=== PATIENT | male | born 1985 | race Caucasian/White ===

== ENCOUNTER 2021-05-04 17:36 | Inpatient (IN) ==
[2021-05-04] MEDS ORDERED: IOPAMIDOL 100 ML BOTTLE IV ONE (17:37)
[2021-05-04] MEDS ORDERED: 0.9 % SODIUM CHLORIDE 1,000 ML IV ONE (17:53)
[2021-05-04] MEDS ORDERED: PIPERACILLIN SODIUM/TAZOBACTAM 3.375 GM in DEXTROSE 5% IN WATER 50 ML IV ONE (17:54)
[2021-05-04 18:45] LABS: POC Creatinine 1.4 mg/dL (0.6-1.2)
[2021-05-04] MEDS ORDERED: HYDROmorphone 1 MG/ML SYRINGE IV ONE (18:52)
[2021-05-04] MEDS ORDERED: HYDROmorphone 0.5 MG/0.5 ML SYRINGE ONE (19:23)
[2021-05-04 19:25] LABS: ALT/SGPT 12 U/L (<40); AST/SGOT 9 U/L (<40); Albumin 3.2 gm/dL (3.2-5.2); Albumin/Globulin Ratio 0.7 (1.0-2.3); Alkaline Phosphatase 118 U/L (39-117); Bilirubin,Total 0.8 mg/dL (0.1-1.0); Blood Urea Nitrogen 13 mg/dL (6-20); Calcium 8.7 mg/dL (8.6-10.4); Carbon Dioxide 22 mmol/L (22-30); Chloride 88 mmol/L (96-108); Globulin 4.3 gm/dL (2.2-3.7); Glomerular Filtration Rate 71; Glucose 497 mg/dL (70-105)
[2021-05-04 19:26] LABS: Basophils # (Auto) 0.14 K/mcL (0.00-0.30); Basophils % (Auto) 0.5 % (0.0-2.0); Eosinophils # (Auto) 0.04 K/mcL (0.00-0.70); Eosinophils % (Auto) 0.1 % (0.0-7.0); Hematocrit 34.6 % (40.1-51.0); Hemoglobin 11.7 g/dL (13.7-17.5); Lymphocytes # (Auto) 1.36 K/mcL (1.50-4.80); Lymphocytes % (Auto) 4.8 % (15.5-49.0); Mean Cell Volume 80.5 fL (80.0-100.0); Mean Corpuscular HGB Conc 33.8 g/dL (31.0-36.0); Mean Platelet Volume 9.8 fL (7.4-10.4); Monocytes # (Auto) 2.58 K/mcL (0.10-0.90); Monocytes % (Auto) 9.1 % (1.0-12.0); Neutrophils % (Auto) 85.5 % (38.0-78.0); Platelet Count 341 K/mcL (140-440); Red Cell Distribution Width 12.5 % (11.5-14.5); WBC 28.3 K/mcL (4.5-11.0)
[2021-05-04] MEDS ORDERED: INSULIN REGULAR, HUMAN 1 UNIT/0.01 ML UNIT IV ONE (19:33)
--- NOTE | 2021-05-04 19:35 | Emergency Department Note ---
HPI <Tamar Erickson PA-C - Last Filed: 05/04/21 20:17> General Chief complaint: Back Pain/Injury Stated complaint: Low Back Pain Time Seen by Provider: 05/04/21 17:41 Source: patient Mode of arrival: ambulatory Limitations: no limitations History of Present Illness HPI Narrative: 35-year-old obese diabetic male presents with 6 to 7 days of "back pain." The pain radiates from the top of his gluteal cleft on the left side through the left side of the perineum and down to the front of his left leg. He has difficulty sitting on the toilet due to pain from pressure. Otherwise it is not particularly painful with ambulation or laying flat. He did have some chills about 3 nights ago, but no fevers. He was seen at the [facility] clinic on Friday and examined, and they thought his symptoms were primarily due to lumbar back strain and possible radiculopathy. 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 There is no crepitus and no drainage from the area, but the areas are quite inflamed, indurated, warm to the touch and painful to palpation. He denies difficulty having a bowel movement or pain with stooling. He had a normal bowel movement at approximately noon today. No melena or hematochezia. Other past medical history significant for gastritis and hypertension for which he is on 4 antihypertensive agents. Related Data Home Medications Medication Instructions Recorded Confirmed Trulicity 1 SUBMUCOSAL INJ WEEKLY 05/04/21 losartan 50 mg tablet 50 mg PO QDAY 05/04/21 05/04/21 Allergies Allergy/AdvReac Type Severity Reaction Status Date / Time No Known Drug Allergies Allergy Verified 01/10/17 00:57 Review of Systems <Tamar Erickson PA-C - Last Filed: 05/04/21 20:17> ROS ROS Narrative: Narrative: All systems ED: reviewed and negative except as stated. PFSH <Tamar Erickson PA-C - Last Filed: 05/04/21 20:17> Narrative Patient History Narrative: Narrative: Medical/Surgical/Family History All Active Problems (Updated 05/04/21 @ 20:55 by Nawaf John MD) Stage 1 acute kidney injury (Acute) Perianal abscess (Acute) Sepsis (Acute) Morbid obesity (Acute) Diabetes mellitus type 2, uncontrolled (Acute) Hyperglycemia (Acute) Gastritis (Acute) Abscess, perirectal (Acute) Social History Smoking Status: Current every day smoker Exam <GILMER Bello Last Filed: 05/04/21 20:17> Narrative Narrative: General: AOx3, NAD, nontoxic appearing. Pleasant and conversant. HEENT: PERRL, EOMI, normocephalic. Moist mucous membranes. Normal facies Chest: Symmetric Respiratory: Lungs clear to auscultation bilaterally. No respiratory distress. Unlabored breathing. Heart: Regular rate and rhythm, no murmurs/clicks/rubs. Abdomen: Obese, non-tender, Non distended Extremities: Warm and well perfused. No edema. DP 2+ bilaterally. No venous stasis. Neuro: No focal deficits. Cranial nerves II-XII grossly normal. Skin: Warm dry, no rashes or lesions, no cyanosis. Psych: Normal mood and affect Heme/Lymph: No abnormal bruising General Limitations: no limitations Course <GILMER Bello Last Filed: 05/04/21 20:17> Course Course Narrative: 35-year-old poorly controlled diabetic male presents with perirectal abscess Reevaluation(s) Reevaluation #1: Obtain CBC, CMP, lactic acid, blood cultures Start IV give IV fluids and IV Zosyn Obtain CT of the pelvis with contrast to evaluate his abscess Give IV pain medications as needed Reevaluation #2: Blood glucose is 497, check a VBG and give 10 units IV insulin x1 dose now Consultations Consultation #1: Okay with Dr. Rojas, who will see the patient for consultation. Given the patient's poorly controlled diabetes, and multiple antihypertensive medications he has asked the hospitalist service to get involved with this patient's care. Awaiting hospice consult for admission. Vital Signs Vital signs: Vital Signs Temperature 97.5 F 05/04/21 17:38 Temperature 97.4 F 05/04/21 23:05 Pulse Rate 87 05/04/21 23:05 Respiratory Rate 20 05/04/21 23:05 Blood Pressure 99/58 05/04/21 23:05 Pulse Oximetry (%) 96 05/04/21 23:05 [facility] <Tamar Erickson PA-C - Last Filed: 05/04/21 20:17> MDM Narrative Medical decision making narrative: Perirectal abscess Poorly controlled type [address] Rojas has agreed to see the patient in consultation and will tentatively plan for the OR tomorrow. Currently his white blood cell count is elevated at 28,300 with significant left shift. He has been given IV Zosyn and blood cultures are pending. Lactic acid and VBG are also pending. The hospitalist service has been requested for management of his hypertension and hyperglycemia. I spoke with Dr. John who has excepted the patient for admission. Lab Data Result diagrams: 05/04/21 18:04 05/04/21 18:04 Labs: Lab Results 05/04/21 05/04/21 05/04/21 Range/Units 18:04 18:04 18:38 WBC 28.3 H (4.5-11.0) K/mcL RBC 4.30 L (4.63-6.08) M/mcL Hgb 11.7 L (13.7-17.5) g/dL Hct 34.6 L (40.1-51.0) % MCV 80.5 (80.0-100.0) fL MCH 27.2 (26.0-34.0) pg MCHC 33.8 (31.0-36.0) g/dL RDW 12.5 (11.5-14.5) % Plt Count 341 (140-440) K/mcL MPV 9.8 (7.4-10.4) fL Neut % (Auto) 85.5 H (38.0-78.0) % Lymph % (Auto) 4.8 L (15.5-49.0) % [place] % (Auto) 9.1 (1.0-12.0) % Eos % (Auto) 0.1 (0.0-7.0) % Baso % (Auto) 0.5 (0.0-2.0) % Lymph # (Auto) 1.36 L (1.50-4.80) K/mcL [place] # (Auto) 2.58 H (0.10-0.90) K/mcL Eos # (Auto) 0.04 (0.00-0.70) K/mcL Baso # (Auto) 0.14 (0.00-0.30) K/mcL Absolute Neutrophils 24.16 H (1.80-8.00) K/mcL Sodium 127 L (133-145) mmol/L Potassium 3.8 (3.3-5.1) mmol/L Chloride 88 L (96-108) mmol/L Carbon Dioxide 22 (22-30) mmol/L Anion Gap 17.0 H (8.0-16.0) BUN 13 (6-20) mg/dL Creatinine 1.3 H (0.7-1.2) mg/dL POC Creatinine 1.4 H (0.6-1.2) mg/dL GFR Calculation 71 Glucose 497 H* (70-105) mg/dL Calcium 8.7 (8.6-10.4) mg/dL Total Bilirubin 0.8 (0.1-1.0) mg/dL AST 9 (<40) U/L ALT 12 (<40) U/L Alkaline Phosphatase 118 H (39-117) U/L Total Protein 7.5 (5.9-8.4) gm/dL Albumin 3.2 (3.2-5.2) gm/dL Globulin 4.3 H (2.2-3.7) gm/dL Albumin/Globulin Ratio 0.7 L (1.0-2.3) ED POC Tests ED POC Tests: SHANTEL - SARS Antigen Negative Discharge Plan Patient/Caregiver Discharge Instructions Pt seen by [employer]/PA only: Yes Clinical Impression: Hyperglycemia, Abscess, perirectal Patient Disposition: Xfer As Inpt ([facility]) Discharge Date/Time: 05/04/21 20:51
[2021-05-04] MEDS ORDERED: INSULIN REGULAR, HUMAN 1 UNIT/0.01 ML UNIT ONE (19:54)
--- NOTE | 2021-05-04 20:42 | Internal Med History&Physical ---
HPI History of Present Illness Patient information: Note initiated : 05/04/21 at 8:38 pm Service Date, if different from initiated Date: [] Patient: Lele Obrien a 35 y/o M admitted on for Low Back Pain. Chief Complaint: [perianal abscess] Chief complaint: History of present illness: Mr. Obrien is a 35 year old M gentleman history of morbid obesity, type 2 diabetes mellitus, essential hypertension, presenting with 7-day history of swelling and pain of his perianal region. There was no prior similar episode. He denies any trauma or injury to the aforementioned area. Over the past 7 days, he has gradual onset, gradually worsening swelling and pain of his perianal region. He has noticed his left gluteal flow has gradually swollen up and become very inflamed and red, with associated pain up to 9 out of 10 in scale, burning and twisting in nature, constant, possibly alleviated by NSAIDs. He also have associated diaphoresis. He denies any fever or chills. He denies any nausea or vomiting. Exacerbating factors, standing and walking. Alleviating factors: Resting. Vital signs at ED presentations including mild tachycardia with heart rate in the 100s beats per minute, with rest of the vital signs within normal limits. Labs significant for leukocytosis with WBC 28.3. Blood sugar level 497. Serum creatinine level 1.3. Constitutional Constitutional: Present excessive sweating; Absent chills, fatigue, fever(s) or weakness EENT Eyes: Absent blurry vision, change in vision, loss of vision or other visual disturbances Ears: Absent decreased hearing or tinnitus Nose, mouth and throat: Absent abnormal hearing, dry mouth, headache(s), nasal congestion or sore throat Cardiovascular Cardiovascular: Absent chest pain, chest pain at rest, edema, irregular heart rhythm or palpatations Respiratory Respiratory: Absent cough, dyspnea or wheezing Gastrointestinal Gastrointestinal: Absent abdominal pain, constipation, diarrhea, nausea or vomiting Additional comments: perianal swelling and pain Musculoskeletal Musculoskeletal: Absent back pain, deformity, limited range of motion, muscle cramps, muscle weakness or numbness Integumentary Integumentary: Present lesions, new lesions and swelling; Absent rash or wounds Additional comments: perianal swelling and pain Neurological Neurological: Absent focal weakness, headache(s) or numbness Psychiatric Psychiatric: Absent anxiety, depression or hallucinations PFSH PFSH All Active Problems (Updated 05/04/21 @ 20:55 by Nawaf John MD) Stage 1 acute kidney injury (Acute) Perianal abscess (Acute) Sepsis (Acute) Morbid obesity (Acute) Diabetes mellitus type 2, uncontrolled (Acute) Hyperglycemia (Acute) Gastritis (Acute) Abscess, perirectal (Acute) MEDS/ALLERGIES Home Medications and Allergies Home Medications Medication Instructions Recorded Confirmed Type metformin 500 mg tablet 500 mg PO BIDCC #60 tab 01/10/17 Rx Allergies Allergy/AdvReac Type Severity Reaction Status Date / Time No Known Drug Allergies Allergy Verified 01/10/17 00:57 EXAM Constitutional Vitals: Temp Pulse BP Pulse Ox 36.4 C 96 H 117/60 97 05/04/21 17:38 05/04/21 19:47 05/04/21 19:47 05/04/21 19:47 General appearance: cooperative, morbidly obese and no acute distress Head Head exam: Present atraumatic and normocephalic Eye Eye exam: Present EOMI and PERRL ENT ENT exam: Present mucous membranes moist, normal exam and normal external ear exam Neck Neck exam: Present normal inspection; Absent lymphadenopathy, tenderness or thyromegaly Respiratory Respiratory exam: Absent accessory muscle use, respiratory distress or wheezes Cardiovascular Cardiovascular exam: Present normal rate and rhythm; Absent JVD GI/Abdominal GI/Abdominal exam: Present normal bowel sounds and soft; Absent organomegaly or tenderness Rectal Rectal exam: Present deferred and tenderness; Absent normal inspection Additional comments: perianal swelling and pain Extremities Exam Extremities exam: Present full ROM, normal capillary refill and normal inspection; Absent tenderness Neurological Exam Neurological exam: Present alert, CN II-XII intact and oriented X3; Absent motor sensory deficit Psychiatric Psychiatric exam: Present normal affect and normal mood; Absent anxious or depressed Skin Skin exam: Present dry, erythema, intact and rash DATA Data Completed and Pending Labs: Labs from last 24 hours 05/04/21 05/04/21 05/04/21 18:38 18:04 18:04 WBC 28.3 H RBC 4.30 L Hgb 11.7 L Hct 34.6 L MCV 80.5 MCH 27.2 MCHC 33.8 RDW 12.5 Plt Count 341 MPV 9.8 Neut % (Auto) 85.5 H Lymph % (Auto) 4.8 L [place] % (Auto) 9.1 Eos % (Auto) 0.1 Baso % (Auto) 0.5 Lymph # (Auto) 1.36 L [place] # (Auto) 2.58 H Eos # (Auto) 0.04 Baso # (Auto) 0.14 Absolute Neutrophils 24.16 H Sodium 127 L Potassium 3.8 Chloride 88 L Carbon Dioxide 22 Anion Gap 17.0 H BUN 13 Creatinine 1.3 H POC Creatinine 1.4 H GFR Calculation 71 Glucose 497 H* Calcium 8.7 Total Bilirubin 0.8 AST 9 ALT 12 Alkaline Phosphatase 118 H Total Protein 7.5 Albumin 3.2 Globulin 4.3 H Albumin/Globulin Ratio 0.7 L A/P Assessment and plan (1) Diabetes mellitus type 2, uncontrolled: Status: Acute (2) Morbid obesity: Status: Acute (3) Sepsis: Status: Acute (4) Perianal abscess: Status: Acute (5) Stage 1 acute kidney injury: Status: Acute Narrative A/P Narrative: Assessment and Plans: 1. Perianal abscess with associated clinical sepsis: Admit to inpatient med surg Dr. Rojas consulted for potential I&D in the morning NPO after midnight with NS@100cc/hr Lactic acid Procalcitonin Blood culture Intra-operative culture cbc w/ auto diff in the morning to trend WBC Tylenol PRN fever Oxycodone PRN moderate pain Morphine IV PRN severe pain Zosyn 2. Uncontrolled T2DM: HgA1c Hold Metformin Weight base Insulin Lantus 0.5unit/kg/day= 75 unit HS High dose correctional scale insulin q6hr Accu Chek q6hr Hypoglycemia protocol NPO with NS@100cc/hr 3. Stage 1 acute kidney injury: Avoid nephrotoxic agents NS@100cc/hr CMP in the morning to trend WBC 4. 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 Pseudohyponatremia: Corrected serum sodium level 137 7. Essential HTN: Currently normotensive Continue home regimen of oral antihypertensives GI ppx: not currently indicated DVT ppx: SCDs Code status: Full Prognosis: guarded Disposition: inpatient Time Spent With Patient Time: Total time spent is greater than 50% in coordination of care (as documented) at patient's floor/unit and/or counseling patient: Total time spent with greater than 50% in coordination of care (as documented) at patient's floor/unit and/or counseling patient:: Greater than 35 minutes
--- NOTE | 2021-05-04 20:53 | General Surgery Consult Note ---
HPI Data of Consult Consult date: 05/04/21 Requesting physician: Nawaf John Primary Care Provider: Olena Gongora Consult Narrative Patient Information: Note initiated : 05/04/21 at 8:47 pm Service Date, if different from initiated Date: [] Patient: Lele Obrien 35 y/o M admitted on for Low Back Pain. Chief Complaint: [] Chief complaint: Left perianal abscess Reason for consult: Left perianal abscess cc:: CC: 35-year-old male with 1 week history of painful mass of his left buttock. The mass has increased in size and he is seen in the emergency room with findings of a large perianal, perirectal abscess. He is septic with a white count of 28,000. He also has uncontrolled diabetes. Patient is evaluated in the emergency room and is consulted on with plans for incision, drainage, and debridement of the abscess after his blood sugars are controlled. 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 Review of Systems All systems: reviewed and no additional remarkable complaints except as stated PFSH PFSH All Active Problems (Updated 05/06/21 @ 13:54 by Edson Rojas MD) Heavenly-rectal abscess (Acute) Stage 1 acute kidney injury (Acute) Perianal abscess (Acute) Sepsis (Acute) Morbid obesity (Acute) Diabetes mellitus type 2, uncontrolled (Acute) Hyperglycemia (Acute) Gastritis (Acute) Abscess, perirectal (Acute) MEDS/ALLERGIES Home Medications and Allergies Home Medications Medication Instructions Recorded Confirmed Type Trulicity 0.5 ml .ROUTE WEEKLY 05/04/21 05/05/21 History losartan 50 mg tablet 50 mg PO QDAY 05/04/21 05/04/21 History Aspirin Child 81 mg PO DAILY 05/05/21 05/05/21 History bupropion HCl 300 mg PO QHS 05/05/21 05/05/21 History chlorthalidone 25 mg PO DAILY 05/05/21 05/05/21 History diltiazem HCl 240 mg PO DAILY 05/05/21 05/05/21 History ergocalciferol (vitamin D2) 1.25 mg PO WEEKLY 05/05/21 05/05/21 History ferrous sulfate 325 mg PO 2-3XW 05/05/21 05/05/21 History hydroxyzine pamoate 25 mg PO Q4-6HP PRN 05/05/21 05/05/21 History metoprolol succinate 100 mg PO DAILY 05/05/21 05/05/21 History sertraline 25 mg PO DAILY 05/05/21 05/05/21 History Allergies Allergy/AdvReac Type Severity Reaction Status Date / Time No Known Drug Allergies Allergy Verified 01/10/17 00:57 Physical Examination Vital Signs Vital signs: Temp Pulse BP Pulse Ox 97.5 F 92 H 117/60 96 05/04/21 17:38 05/04/21 20:40 05/04/21 19:47 05/04/21 20:40 General physical appearance General physical exam: no distress, moderate pain and obese (Morbid obesity) Eyes Eye exam: PERRL and normal ocular movement ENT ENT exam: normal mucosa, no hearing loss and no congestion Head Head exam IM: Present atraumatic, normal inspection and normocephalic Neck Neck exam: trachea midline, no lymphadenopathy and no venous distension Cardiovascular Cardiovascular exam IM: Present JVD, +S1 and +S2 Respiratory Respiratory exam: normal expansion, normal respiratory effort and clear to auscultation Abdomen Abdomen: Present soft and non tender; Absent organomegaly or masses Rectum Rectum: Present other (Large left perianal abscess with bulging and extension anteriorly to base of scrotum) Integumentary Integumentary: Present no rash and no growths Neurologic Neurologic: Present normal coordination and normal sensation Musculoskeletal Musculoskeletal: Present normal gait and normal posture Psychiatric Psychiatric: Present oriented to time, oriented to person, oriented to place, speech is normal and memory intact Results Labs Result diagrams: 05/08/21 05:45 05/08/21 05:45 Labs: Abnormal lab results 05/04/21 05/04/21 05/04/21 Range/Units 18:04 18:04 18:38 WBC 28.3 H (4.5-11.0) K/mcL RBC 4.30 L (4.63-6.08) M/mcL Hgb 11.7 L (13.7-17.5) g/dL Hct 34.6 L (40.1-51.0) % Neut % (Auto) 85.5 H (38.0-78.0) % Lymph % (Auto) 4.8 L (15.5-49.0) % Lymph # (Auto) 1.36 L (1.50-4.80) K/mcL [place] # (Auto) 2.58 H (0.10-0.90) K/mcL Absolute Neutrophils 24.16 H (1.80-8.00) K/mcL Sodium 127 L (133-145) mmol/L Chloride 88 L (96-108) mmol/L Anion Gap 17.0 H (8.0-16.0) Creatinine 1.3 H (0.7-1.2) mg/dL POC Creatinine 1.4 H (0.6-1.2) mg/dL Glucose 497 H* (70-105) mg/dL Alkaline Phosphatase 118 H (39-117) U/L Globulin 4.3 H (2.2-3.7) gm/dL Albumin/Globulin Ratio 0.7 L (1.0-2.3) Diabetes panel 05/04/21 Range/Units 18:04 Sodium 127 L (133-145) mmol/L Potassium 3.8 (3.3-5.1) mmol/L Chloride 88 L (96-108) mmol/L Carbon Dioxide 22 (22-30) mmol/L BUN 13 (6-20) mg/dL Creatinine 1.3 H (0.7-1.2) mg/dL Glucose 497 H* (70-105) mg/dL Calcium 8.7 (8.6-10.4) mg/dL AST 9 (<40) U/L ALT 12 (<40) U/L Alkaline Phosphatase 118 H (39-117) U/L Total Protein 7.5 (5.9-8.4) gm/dL Albumin 3.2 (3.2-5.2) gm/dL Calcium panel 05/04/21 Range/Units 18:04 Calcium 8.7 (8.6-10.4) mg/dL Albumin 3.2 (3.2-5.2) gm/dL Pituitary panel 05/04/21 Range/Units 18:04 Sodium 127 L (133-145) mmol/L Potassium 3.8 (3.3-5.1) mmol/L Chloride 88 L (96-108) mmol/L Carbon Dioxide 22 (22-30) mmol/L BUN 13 (6-20) mg/dL Creatinine 1.3 H (0.7-1.2) mg/dL Glucose 497 H* (70-105) mg/dL Calcium 8.7 (8.6-10.4) mg/dL Adrenal panel 05/04/21 Range/Units 18:04 Sodium 127 L (133-145) mmol/L Potassium 3.8 (3.3-5.1) mmol/L Chloride 88 L (96-108) mmol/L Carbon Dioxide 22 (22-30) mmol/L BUN 13 (6-20) mg/dL Creatinine 1.3 H (0.7-1.2) mg/dL Glucose 497 H* (70-105) mg/dL Calcium 8.7 (8.6-10.4) mg/dL Total Bilirubin 0.8 (0.1-1.0) mg/dL AST 9 (<40) U/L ALT 12 (<40) U/L Alkaline Phosphatase 118 H (39-117) U/L Total Protein 7.5 (5.9-8.4) gm/dL Albumin 3.2 (3.2-5.2) gm/dL All other labs normal. A/P Assessment and plan (1) Abscess, perirectal: Status: Acute (2) Diabetes mellitus type 2, uncontrolled: Status: Acute (3) Morbid obesity: Status: Acute (4) Sepsis: Status: Acute Narrative A/P Narrative: Diabetes will be managed by hospitalist staff He will have incision and drainage and curettage of the abscess tract Time Spent With Patient Time: Total time spent is greater than 50% in coordination of care (as documented) at patient's floor/unit and/or counseling patient:
[2021-05-04] MEDS ORDERED: ZOLPIDEM 5 MG TABLET PO PRN (20:57)
[2021-05-04] MEDS ORDERED: ONDANSETRON 4 MG/2 ML VIAL IV PRN (20:57)
[2021-05-04] MEDS ORDERED: DEXTROSE 31 GM ORAL.SUSP PO PRN (20:57)
[2021-05-04] MEDS ORDERED: morphine 4 MG/ML VIAL IV PRN (20:57)
[2021-05-04] MEDS ORDERED: DEXTROSE 50% 50 ML VIAL IV PRN (20:57)
[2021-05-04] MEDS ORDERED: IPRATROPIUM/ALBUTEROL 3 ML AMPUL.NEB NEB PRN (20:57)
[2021-05-04] MEDS: 0.9 % SODIUM CHLORIDE 1,000 ML IV SCH (21:20)
[2021-05-04] MEDS: SENNOSIDES 1 TABLET PO SCH (21:20)
[2021-05-04] MEDS: DOCUSATE SODIUM 100 MG CAPSULE PO SCH (21:21)
[2021-05-04] MEDS: INSULIN GLARGINE, HUMAN 1 UNIT/0.01 ML SQ SCH (21:21)
[2021-05-04] MEDS: INSULIN LISPRO 1 UNIT/0.01 ML UNIT SQ SCH ×2 (21:22→23:04)
[2021-05-04] MEDS: 0.9 % SODIUM CHLORIDE 10 ML SYRINGE IV SCH (21:24)
[2021-05-04 22:30] LABS: Hemoglobin A1C 8.1 % Hgb (4.0-6.0)
[2021-05-04] MEDS: ACETAMINOPHEN 325 MG TABLET PO PRN (23:10)
[2021-05-04] MEDS: PIPERACILLIN SODIUM/TAZOBACTAM 3.375 GM in DEXTROSE 5% IN WATER 50 ML IV SCH (23:11)
[2021-05-04 23:41] LABS: Appearance,Urine HAZY (Clear); Bilirubin,Urine Negative (Negative); Color,Urine YELLOW; Culture Indicated,Urine No; Glucose,Urine (UA) >=500 mg/dL (Negative); Ketones,Urine Negative (Negative); Leukocyte Esterase,Urine Negative /uL (Negative); Nitrate,Urine Negative (Negative); Protein,Urine Negative (Negative); Specific Gravity,Urine 1.043 (1.000-1.035); Urine Blood Negative (Negative); Urine RBC 0 /hpf (0-3); Urine Squamous Epithelial Cell 0 /hpf (0-4); Urine WBC 6 /hpf (0-4); Urobilinogen,Urine Negative
[2021-05-05] MEDS: INSULIN LISPRO 1 UNIT/0.01 ML UNIT SQ SCH ×6 (00:10→21:23)
[2021-05-05] MEDS: oxyCODONE HCL 5 MG TABLET PO PRN (03:29)
[2021-05-05] MEDS: PIPERACILLIN SODIUM/TAZOBACTAM 3.375 GM in DEXTROSE 5% IN WATER 50 ML IV SCH ×4 (05:30→23:45)
[2021-05-05] MEDS: 0.9 % SODIUM CHLORIDE 10 ML SYRINGE IV SCH ×3 (05:33→21:22)
[2021-05-05 06:52] LABS: Basophils % (Auto) 0.5 % (0.0-2.0); Eosinophils # (Auto) 0.19 K/mcL (0.00-0.70); Eosinophils % (Auto) 0.9 % (0.0-7.0); Hematocrit 33.2 % (40.1-51.0); Hemoglobin 11.5 g/dL (13.7-17.5); Lymphocytes # (Auto) 1.22 K/mcL (1.50-4.80); Lymphocytes % (Auto) 5.7 % (15.5-49.0); Mean Cell Volume 79.6 fL (80.0-100.0); Mean Corpuscular HGB Conc 34.6 g/dL (31.0-36.0); Mean Platelet Volume 9.7 fL (7.4-10.4); Monocytes # (Auto) 1.73 K/mcL (0.10-0.90); Monocytes % (Auto) 8.1 % (1.0-12.0); Neutrophils % (Auto) 84.8 % (38.0-78.0); Platelet Count 269 K/mcL (140-440); RBC 4.17 M/mcL (4.63-6.08); Red Cell Distribution Width 12.5 % (11.5-14.5); WBC 21.4 K/mcL (4.5-11.0)
--- NOTE | 2021-05-05 07:42 | Cat Scan Report ---
CLINICAL INFORMATION: Perirectal abscess COMPARISON: None. TECHNIQUE: Following enteric contrast, 80 cc of Isovue-[id number] were injected intravenously, and 60 seconds later, 0.625 mm helical slices were obtained from the mid heart through the subtrochanteric regions. Following reconstruction, 2.5 mm sagittal, coronal and axial reformatted images were processed and reviewed at bone, lung and soft tissue windows. Five minutes later, 0.625 mm helical slices were obtained from the mid heart through the kidneys and viewed at soft tissue windows.The exam was performed using radiation dose optimization techniques including, but not limited to, automated exposure control, adjustment of the mA and/or kV according to patient size and use of iterative reconstruction technique. FINDINGS: The lung bases are clear. No effusions. The visualized heart is grossly normal. Abdominal images show the gallbladder and bile ducts, liver, both kidneys, adrenal glands, spleen, pancreas and aorta, including aortic branches, are normal in size, configuration and attenuation without focal lesion. There is no free air, free fluid or adenopathy. Pelvic images show normal urinary bladder, prostate and seminal vesicles. The stomach, small bowel, appendix region and large bowel are grossly normal. There is a large (12.5 x 3 cm) subdermal abscess in the left buttock region, adjacent to the vamsi cleft. Moderate surrounding cellulitis appreciated.. The abscess extends in the scrotal base. It also extends to the left levator ani muscle which is mildly thickened. There is, however, no transgression into the extraperitoneal or intraperitoneal space. Bone windows show no osseous abnormality IMPRESSION: 12.5 x 3 cm subdermal abscess in the left buttock region. It extends to the left scrotal base. It does not, however, transgress the levator ani to enter the extraperitoneal soft tissues Interpreted and Authenticated by: Reagan Campos 05/05/21
[2021-05-05 07:44] LABS: ALT/SGPT 11 U/L (<40); AST/SGOT 8 U/L (<40); Albumin 3.1 gm/dL (3.2-5.2); Albumin/Globulin Ratio 0.7 (1.0-2.3); Alkaline Phosphatase 114 U/L (39-117); Bilirubin,Total 0.9 mg/dL (0.1-1.0); Blood Urea Nitrogen 17 mg/dL (6-20); Calcium 8.7 mg/dL (8.6-10.4); Carbon Dioxide 28 mmol/L (22-30); Chloride 89 mmol/L (96-108); Globulin 4.2 gm/dL (2.2-3.7); Glomerular Filtration Rate 86; Glucose 265 mg/dL (70-105)
[2021-05-05] MEDS: 0.9 % SODIUM CHLORIDE 1,000 ML IV SCH ×2 (08:37→17:20)
--- NOTE | 2021-05-05 10:19 | Internal Med Progress Note ---
SUBJECTIVE Subjective Patient information: Note initiated : 05/05/21 at 10:16 am Service Date, if different from initiated Date: [] Patient: Lele Obrien 35 y/o M admitted on 05/04/21 for Low Back Pain. Chief Complaint: [perianal abscess] Interval history: History of present illness: Mr. Obrien is a 35 year old M gentleman history of morbid obesity, type 2 diabetes mellitus, essential hypertension, presenting with 7-day history of swelling and pain of his perianal region. There was no prior similar episode. He denies any trauma or injury to the aforementioned area. Over the past 7 days, he has gradual onset, gradually worsening swelling and pain of his perianal region. He has noticed his left gluteal flow has gradually swollen up and become very inflamed and red, with associated pain up to 9 out of 10 in scale, burning and twisting in nature, constant, possibly alleviated by NSAIDs. He also have associated diaphoresis. He denies any fever or chills. He denies any nausea or vomiting. Exacerbating factors, standing and walking. Alleviating factors: Resting. Vital signs at ED presentations including mild tachycardia with heart rate in the 100s beats per minute, with rest of the vital signs within normal limits. Labs significant for leukocytosis with WBC 28.3. Blood sugar level 497. Serum creatinine level 1.3. 05/05: Afebrile. Blood culture no growth to date. In the OR for abscess drainage by Dr. Rojas now. Constitutional Vitals: Vital Signs Temp Pulse Resp BP Pulse Ox 37.2 C 101 H 22 121/77 96 05/05/21 07:15 05/05/21 07:15 05/05/21 07:15 05/05/21 07:15 05/05/21 07:15 Period Temp Pulse Resp BP Sys/Monet Pulse Ox Last 24 Hr 36.3 C-37.2 C 87-102 20-22 99-121/58-77 91-97 Intake and Output 05/04/21 05/05/21 05/05/21 21:59 05:59 13:59 Intake Total 1050 1060 1050 Output Total 975 Balance 1050 85 1050 Weight 150.411 kg Intake & Output: Intake & Output 05/04/21 05/05/21 05/05/21 21:59 05:59 13:59 Intake Total 1050 1060 1050 Output Total 975 Balance 1050 85 1050 Weight 150.411 kg Intake: IV 1050 50 1050 Sodium Chloride 0.9% 1,000 ml @ 1000 1000 100 mls/hr IV .Q10H [facility] Rx#: [id number] Zosyn 3.375 gm In Dextrose 5% 50 50 50 in Water 50 ml @ 100 mls/hr IV Q6H [facility] Rx#:[id number] Oral 1010 Output: Void Amount 975 Other: Urine Appearance Clear Urine Color Straw General appearance: cooperative and morbidly obese Head Head exam: Present atraumatic and normal inspection Eye Eye exam: Present normal appearance ENT ENT exam: Present mucous membranes moist, normal exam and normal external ear exam Neck Neck exam: Present normal inspection Respiratory Respiratory exam: Present normal respiratory exam Cardiovascular Cardiovascular exam: Present normal rate and rhythm GI/Abdominal GI/Abdominal exam: Present normal bowel sounds Rectal Additional comments: 12.5X3cm left gluteal region erythema, induration, tenderness to touch, warm to touch. Intact skin. Back Exam Back exam: Present normal inspection Neurological Exam Neurological exam: Present alert and oriented X3 Skin Skin exam: Present intact and warm OBJ DATA Labs CBC & Chem 7: 05/05/21 05:30 05/05/21 05:30 Labs: Abnormal Lab Results 05/05/21 05/05/21 05/04/21 05:30 05:30 22:57 WBC 21.4 H RBC 4.17 L Hgb 11.5 L Hct 33.2 L MCV 79.6 L Neut % (Auto) 84.8 H Lymph % (Auto) 5.7 L Lymph # (Auto) 1.22 L [place] # (Auto) 1.73 H Absolute Neutrophils 18.16 H VBG Lactic Acid Sodium 128 L Chloride 89 L Anion Gap Creatinine POC Creatinine Glucose 265 H Hemoglobin A1c Alkaline Phosphatase Albumin 3.1 L Globulin 4.2 H Albumin/Globulin Ratio 0.7 L Procalcitonin Urine Appearance Hazy A Urine Glucose (UA) >=500 A Urine WBC 6 H 05/04/21 05/04/21 05/04/21 21:10 20:59 20:59 WBC RBC Hgb Hct MCV Neut % (Auto) Lymph % (Auto) Lymph # (Auto) [place] # (Auto) Absolute Neutrophils VBG Lactic Acid 2.8 H Sodium Chloride Anion Gap Creatinine POC Creatinine Glucose Hemoglobin A1c 8.1 H Alkaline Phosphatase Albumin Globulin Albumin/Globulin Ratio Procalcitonin 0.46 H Urine Appearance Urine Glucose (UA) Urine WBC 05/04/21 05/04/21 05/04/21 18:38 18:04 18:04 WBC 28.3 H RBC 4.30 L Hgb 11.7 L Hct 34.6 L MCV Neut % (Auto) 85.5 H Lymph % (Auto) 4.8 L Lymph # (Auto) 1.36 L [place] # (Auto) 2.58 H Absolute Neutrophils 24.16 H VBG Lactic Acid Sodium 127 L Chloride 88 L Anion Gap 17.0 H Creatinine 1.3 H POC Creatinine 1.4 H Glucose 497 H* Hemoglobin A1c Alkaline Phosphatase 118 H Albumin Globulin 4.3 H Albumin/Globulin Ratio 0.7 L Procalcitonin Urine Appearance Urine Glucose (UA) Urine WBC Meds: Medications Acetaminophen (Acetaminophen 325 Mg Tablet) 650 mg PO Q6HP PRN; Protocol PRN Reason: Per Pain Protocol/Fever > 101 Last Admin: 05/04/21 23:10 Dose: 650 mg Documented by: Albuterol/Ipratropium (Ipratropium/Albuterol 3 Ml Ampul.Neb) 3 ml NEB Q4HRT PRN PRN Reason: Wheezing Dextrose (Dextrose 50% 50 Ml Vial) 0 ml IV UD PRN PRN Reason: Hypoglycemia Diagnostic Test (Pha) (Accu-Chek 1 Each Strip) 1 each FS ACHS [facility] Last Admin: 05/05/21 03:27 Dose: 1 each Documented by: Docusate Sodium (Docusate Sodium 100 Mg Capsule) 100 mg PO BID [facility] Last Admin: 05/04/21 21:21 Dose: 100 mg Documented by: Glucose (Dextrose 31 Gm Oral.Susp) 15 gm PO PRN PRN PRN Reason: Hypoglycemia Sodium Chloride (Sodium Chloride 0.9%) 1,000 mls @ 100 mls/hr IV .Q10H [facility] Last Admin: 05/05/21 08:37 Dose: 100 mls/hr Documented by: Piperacillin Sod/Tazobactam (Sod 3.375 gm/ Dextrose) 50 mls @ 100 mls/hr IV Q6H [facility]; Protocol Last Infusion: 05/05/21 06:05 Dose: Infused Documented by: Insulin Glargine (Insulin Glargine, Human 1 Unit/0.01 Ml) 75 unit SQ [facility] Last Admin: 05/04/21 21:21 Dose: 75 units Documented by: Insulin Human Lispro (Insulin Lispro 1 Unit/0.01 Ml Unit) 0 unit SQ Q6 [facility]; Protocol Last Admin: 05/05/21 05:48 Dose: 12 units Documented by: Losartan Potassium (Losartan 50 Mg Tablet) 50 mg PO QDAY [facility] Morphine Sulfate (Morphine 4 Mg/Ml Vial) 4 mg IV Q4HP PRN; Protocol PRN Reason: Per Pain Protocol Ondansetron HCl (Ondansetron 4 Mg/2 Ml Vial) 4 mg IV Q6HP PRN PRN Reason: Nausea And Vomiting Oxycodone HCl (Oxycodone Hcl 5 Mg Tablet) 5 mg PO Q4HP PRN; Protocol PRN Reason: Per Pain Protocol Last Admin: 05/05/21 03:29 Dose: 5 mg Documented by: Scopolamine (Scopolamine 1 Patch Patch) 1 patch TOPICAL PREOP PRN PRN Reason: Nausea And Vomiting Stop: 05/05/21 23:59 Senna (Sennosides 1 Tablet) 2 tab PO [facility] Last Admin: 05/04/21 21:20 Dose: 2 tab Documented by: Sodium Chloride (0.9 % Sodium Chloride 10 Ml Syringe) 10 ml IV Q8 [facility] Last Admin: 05/05/21 05:33 Dose: Not Given Documented by: Zolpidem Tartrate (Zolpidem 5 Mg Tablet) 5 mg PO HSP PRN PRN Reason: Insomnia A/P Assessment and plan (1) Diabetes mellitus type 2, uncontrolled: Status: Acute (2) Morbid obesity: Status: Acute (3) Sepsis: Status: Acute (4) Perianal abscess: Status: Acute (5) Stage 1 acute kidney injury: Status: Acute Narrative A/P Narrative: Assessment and Plans: 1. Perianal abscess with associated clinical sepsis: Stays in inpatient med surg Dr. Rojas consulted: I&D now with intraoperative wound culture NPO after midnight with NS@100cc/hr Lactic acid Procalcitonin 0.46 Blood culture, no growth to date Intra-operative culture, to be collected cbc w/ auto diff in the morning to trend WBC Tylenol PRN fever Oxycodone PRN moderate pain Morphine IV PRN severe pain Zosyn 2. Uncontrolled T2DM: HgA1c 8.1 Hold Metformin Weight base Insulin Lantus 0.5unit/kg/day= 75 unit HS High dose correctional scale insulin q6hr Accu Chek q6hr Hypoglycemia protocol NPO with NS@100cc/hr 3. Stage 1 acute kidney injury: Avoid nephrotoxic agents NS@100cc/hr CMP in the morning to trend WBC 4. 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 Pseudohyponatremia: Corrected serum sodium level 137 on date of admission 7. Essential HTN: Currently normotensive Continue home regimen of oral antihypertensives GI ppx: not currently indicated DVT ppx: SCDs Code status: Full Prognosis: guarded Disposition: inpatient Time Spent With Patient Time: Total time spent is greater than 50% in coordination of care (as documented) at patient's floor/unit and/or counseling patient: Total time spent with greater than 50% in coordination of care (as documented) at patient's floor/unit and/or counseling patient:: Greater than 35 minutes QUALITY VTE Deep Vein Thrombosis/Pulmonary Embolism Present on Admission: No
[2021-05-05] MEDS: DOCUSATE SODIUM 100 MG CAPSULE PO SCH ×2 (10:30→21:22)
[2021-05-05] MEDS: LOSARTAN 50 MG TABLET PO SCH (10:31)
[2021-05-05] MEDS ORDERED: LIDOCAINE HCL/PF 100 MG/5 ML SYRINGE IV ONE (10:43)
[2021-05-05] MEDS ORDERED: MAGNESIUM SULFATE 2 GM/50 ML BAG IV ONE (10:43)
[2021-05-05] MEDS ORDERED: fentaNYL 250 MCG/5 ML VIAL IV ONE (10:43)
[2021-05-05] MEDS ORDERED: DEXAMETHASONE 10 MG/ML VIAL ONE (10:43)
[2021-05-05] MEDS ORDERED: KETAMINE 50 MG/ML Syringe (ANEST) IV ONE (10:43)
[2021-05-05] MEDS ORDERED: PROPOFOL 200 MG/20 ML VIAL IV ONE (10:43)
[2021-05-05] MEDS ORDERED: ONDANSETRON 4 MG/2 ML VIAL ONE (10:43)
--- NOTE | 2021-05-05 10:55 | EKG ---
[facility] Test Date: 2021-05-05 Pat Name: Lele Obrien Department: [facility] Room: 108 Gender: Male [employer]: : [id number] Requested By: Edson Rojas Order Number: [id number] Reading MD: Merlin Nam Measurements Intervals [place] Rate: 101 P: 27 DC: 161 QRS: 49 QRSD: 104 T: QT: 390 QTc: 506 Interpretive Statements Sinus tachycardia Borderline T abnormalities, diffuse leads Prolonged QT interval Electronically Signed On 05-05-2021 10:55:25 PST by Merlin Nam /[email or web address]/[id number]
[2021-05-05] MEDS ORDERED: SCOPOLAMINE 1 PATCH PATCH TOPICAL PRN (11:00)
[2021-05-05] MEDS ORDERED: PROMETHAZINE 25 MG/ML VIAL IV PRN (11:24)
[2021-05-05] MEDS ORDERED: ONDANSETRON 4 MG/2 ML VIAL IV PRN (11:24)
[2021-05-05] MEDS ORDERED: NALOXONE HCL 0.4 MG/ML VIAL IV PRN (11:24)
[2021-05-05] MEDS ORDERED: ACETAMINOPHEN 1,000 MG/100 ML BAG IV ONE (11:24)
[2021-05-05] MEDS ORDERED: IPRATROPIUM/ALBUTEROL 3 ML AMPUL.NEB NEB PRN (11:24)
[2021-05-05] MEDS ORDERED: MEPERIDINE 25 MG/ML VIAL IV PRN (11:24)
[2021-05-05] MEDS ORDERED: LACTATED RINGERS 250 ML IV PRN (11:24)
[2021-05-05] MEDS ORDERED: diphenhydrAMINE 50 MG/ML VIAL IV PRN (11:24)
[2021-05-05] MEDS ORDERED: fentaNYL 100 MCG/2 ML VIAL IV PRN (11:24)
[2021-05-05] MEDS ORDERED: LACTATED RINGERS 1,000 ML IV SCH (11:30)
--- NOTE | 2021-05-05 11:46 | Brief Operative Note ---
Brief Operative Note Date of procedure: 05/05/21 Pre-op diagnosis: peirectal abscess Post-op diagnosis: other (ischiorectal abscess) Procedure: incision and drainage of ischiorectal abscess Grafts/Implants: No Anesthesia: GLMA Findings: very large abscess of left ischiorectal space extending above the pelvic floor to the base of the prostate and around 1/2 the circumferenc of the rectum Complications: none Surgeon: Edson Rojas Estimated blood loss (cc): 100 Specimens Removed/Pathology: other (culures of purulent drainage) Condition: stable Disposition: PACU
[2021-05-05] MEDS ORDERED: hydrOXYzine 25 MG TABLET PO PRN (12:38)
[2021-05-05] MEDS ORDERED: INSULIN LISPRO 1 UNIT/0.01 ML UNIT SQ ONE (19:25)
[2021-05-05] MEDS: buPROPion 150 MG TAB.XL.24H PO SCH (21:22)
[2021-05-05] MEDS: SENNOSIDES 1 TABLET PO SCH (21:22)
[2021-05-05] MEDS: INSULIN GLARGINE, HUMAN 1 UNIT/0.01 ML SQ SCH (21:22)
[2021-05-06] MEDS: 0.9 % SODIUM CHLORIDE 1,000 ML IV SCH ×4 (00:55→22:51)
[2021-05-06] MEDS: INSULIN LISPRO 1 UNIT/0.01 ML UNIT SQ SCH ×7 (05:17→23:02)
[2021-05-06] MEDS: PIPERACILLIN SODIUM/TAZOBACTAM 3.375 GM in DEXTROSE 5% IN WATER 50 ML IV SCH ×4 (05:19→23:03)
[2021-05-06] MEDS: 0.9 % SODIUM CHLORIDE 10 ML SYRINGE IV SCH ×3 (06:20→21:16)
[2021-05-06 06:49] LABS: Basophils # (Auto) 0.05 K/mcL (0.00-0.30); Basophils % (Auto) 0.3 % (0.0-2.0); Eosinophils # (Auto) 0.03 K/mcL (0.00-0.70); Eosinophils % (Auto) 0.2 % (0.0-7.0); Hematocrit 32.7 % (40.1-51.0); Hemoglobin 10.9 g/dL (13.7-17.5); Lymphocytes # (Auto) 1.07 K/mcL (1.50-4.80); Lymphocytes % (Auto) 7.1 % (15.5-49.0); Mean Cell Volume 81.3 fL (80.0-100.0); Mean Corpuscular HGB Conc 33.3 g/dL (31.0-36.0); Mean Platelet Volume 10.1 fL (7.4-10.4); Monocytes # (Auto) 0.85 K/mcL (0.10-0.90); Monocytes % (Auto) 5.6 % (1.0-12.0); Neutrophils % (Auto) 86.8 % (38.0-78.0); Platelet Count 291 K/mcL (140-440); RBC 4.02 M/mcL (4.63-6.08); Red Cell Distribution Width 12.2 % (11.5-14.5); WBC 15.1 K/mcL (4.5-11.0)
[2021-05-06 07:09] LABS: ALT/SGPT 10 U/L (<40); AST/SGOT 9 U/L (<40); Albumin 2.7 gm/dL (3.2-5.2); Albumin/Globulin Ratio 0.7 (1.0-2.3); Alkaline Phosphatase 115 U/L (39-117); Bilirubin,Total 0.4 mg/dL (0.1-1.0); Blood Urea Nitrogen 18 mg/dL (6-20); Calcium 8.2 mg/dL (8.6-10.4); Carbon Dioxide 24 mmol/L (22-30); Chloride 94 mmol/L (96-108); Globulin 4.1 gm/dL (2.2-3.7); Glomerular Filtration Rate 115; Glucose 378 mg/dL (70-105)
[2021-05-06] MEDS: SERTRALINE 50 MG TABLET PO SCH (08:12)
[2021-05-06] MEDS: LOSARTAN 50 MG TABLET PO SCH (08:12)
[2021-05-06] MEDS: DOCUSATE SODIUM 100 MG CAPSULE PO SCH ×2 (08:12→21:15)
[2021-05-06] MEDS: CHLORTHALIDONE 25 MG TABLET PO SCH (08:12)
[2021-05-06] MEDS: DILTIAZEM 240 MG CAP.XL.24H PO SCH (08:13)
--- NOTE | 2021-05-06 10:24 | Internal Med Progress Note ---
SUBJECTIVE Subjective Patient information: Note initiated : 05/06/21 at 10:19 am Service Date, if different from initiated Date: [] Patient: Lele Obrien a 35 y/o M admitted on 05/04/21 for Low Back Pain. Chief Complaint: [] Interval history: History of present illness: Mr. Obrien is a 35 year old M gentleman history of morbid obesity, type 2 d iabetes mellitus, essential hypertension, presenting with 7-day history of swelling and pain of his perianal region. There was no prior similar episode. He denies any trauma or injury to the aforementioned area. Over the past 7 days, he has gradual onset, gradually worsening swelling and pain of his perianal region. He has noticed his left gluteal flow has gradually swollen up and become very inflamed and red, with associated pain up to 9 out of 10 in scale, burning and twisting in nature, constant, possibly alleviated by NSAIDs. He also have associated diaphoresis. He denies any fever or chills. He denies any nausea or vomiting. Exacerbating factors, standing and walking. Alleviati ng factors: Resting. Vital signs at ED presentations including mild tachycardia with heart rate in the 100s beats per minute, with rest of the vital signs within normal limits. Labs significant for leukocytosis with WBC 28.3. Blood sugar level 497. Serum creatinine level 1.3. 05/05: Afebrile. Blood culture no growth to date. In the OR for abscess drainage by Dr. Rojas now. 05/06: s/p I&D ischiorectal abscess by Dr. Rojas on morning of 05/05. Afebrile overnight. Blood and wound cultures no growth to date. Fasting glucose level 381. c/o 06/18 pain left gluteal region around his surgical site. Denies fever, chills, or sweating. Denies constipation. Good appetite. Denies SOB. Constitutional Vitals: Vital Signs Temp Pulse Resp BP Pulse Ox 36.1 C L 62 18 120/80 100 05/06/21 06:33 05/06/21 06:33 05/06/21 06:33 05/06/21 06:33 05/06/21 06:33 Period Temp Pulse Resp BP Sys/Monet Pulse Ox Last 24 Hr 36.1 C-37.6 C 62-109 13-33 90-149/45-90 89-100 Intake and Output 05/05/21 05/06/21 05/06/21 21:59 05:59 13:59 Intake Total 2580 1100 240 Output Total 1999 Balance 580 250 240 Weight 152.77 kg Intake & Output: Intake & Output 05/05/21 05/06/21 05/06/21 21:59 05:59 13:59 Intake Total 2580 1100 240 Output Total 1999 Balance 580 250 240 Weight 152.77 kg Intake: IV 1100 100 Sodium Chloride 0.9% 1,000 ml @ 1000 100 mls/hr IV .Q10H [facility] Rx#: [id number] Zosyn 3.375 gm In Dextrose 5% 100 100 in Water 50 ml @ 100 mls/hr IV Q6H [facility] Rx#:[id number] Oral 1480 1000 240 Output: Void Amount 1999 Other: Meal Dinner Breakfast Percent of Meal Consumed 100% 75% Feeding Ability Independent Independent Urine Appearance Clear Clear Urine Color Bright Yellow Bright Yellow General appearance: cooperative, morbidly obese and no acute distress Head Head exam: Present atraumatic and normal inspection Eye Eye exam: Present normal appearance ENT ENT exam: Present mucous membranes moist, normal exam and normal external ear exam Neck Neck exam: Present normal inspection Respiratory Respiratory exam: Present normal respiratory exam Cardiovascular Cardiovascular exam: Present normal rate and rhythm GI/Abdominal GI/Abdominal exam: Present normal bowel sounds Rectal Additional comments: Left ischiorectal region covered by surgical dressing Back Exam Back exam: Present normal inspection Neurological Exam Neurological exam: Present alert and oriented X3 Skin Skin exam: Present intact and warm OBJ DATA Labs CBC & Chem 7: 05/06/21 05:17 05/06/21 05:17 Labs: Abnormal Lab Results 05/06/21 05/06/21 05/05/21 05:17 05:17 05:30 WBC 15.1 H RBC 4.02 L Hgb 10.9 L Hct 32.7 L MCV Neut % (Auto) 86.8 H Lymph % (Auto) 7.1 L Lymph # (Auto) 1.07 L [place] # (Auto) Absolute Neutrophils 13.06 H VBG Lactic Acid Sodium 131 L 128 L Chloride 94 L 89 L Anion Gap Creatinine POC Creatinine Glucose 378 H 265 H Hemoglobin A1c Calcium 8.2 L Alkaline Phosphatase Albumin 2.7 L 3.1 L Globulin 4.1 H 4.2 H Albumin/Globulin Ratio 0.7 L 0.7 L Procalcitonin Urine Appearance Urine Glucose (UA) Urine WBC 05/05/21 05/04/21 05/04/21 05:30 22:57 21:10 WBC 21.4 H RBC 4.17 L Hgb 11.5 L Hct 33.2 L MCV 79.6 L Neut % (Auto) 84.8 H Lymph % (Auto) 5.7 L Lymph # (Auto) 1.22 L [place] # (Auto) 1.73 H Absolute Neutrophils 18.16 H VBG Lactic Acid 2.8 H Sodium Chloride Anion Gap Creatinine POC Creatinine Glucose Hemoglobin A1c Calcium Alkaline Phosphatase Albumin Globulin Albumin/Globulin Ratio Procalcitonin Urine Appearance Hazy A Urine Glucose (UA) >=500 A Urine WBC 6 H 05/04/21 05/04/21 05/04/21 20:59 20:59 18:38 WBC RBC Hgb Hct MCV Neut % (Auto) Lymph % (Auto) Lymph # (Auto) [place] # (Auto) Absolute Neutrophils VBG Lactic Acid Sodium Chloride Anion Gap Creatinine POC Creatinine 1.4 H Glucose Hemoglobin A1c 8.1 H Calcium Alkaline Phosphatase Albumin Globulin Albumin/Globulin Ratio Procalcitonin 0.46 H Urine Appearance Urine Glucose (UA) Urine WBC 05/04/21 05/04/21 18:04 18:04 WBC 28.3 H RBC 4.30 L Hgb 11.7 L Hct 34.6 L MCV Neut % (Auto) 85.5 H Lymph % (Auto) 4.8 L Lymph # (Auto) 1.36 L [place] # (Auto) 2.58 H Absolute Neutrophils 24.16 H VBG Lactic Acid Sodium 127 L Chloride 88 L Anion Gap 17.0 H Creatinine 1.3 H POC Creatinine Glucose 497 H* Hemoglobin A1c Calcium Alkaline Phosphatase 118 H Albumin Globulin 4.3 H Albumin/Globulin Ratio 0.7 L Procalcitonin Urine Appearance Urine Glucose (UA) Urine WBC Meds: Medications Acetaminophen (Acetaminophen 325 Mg Tablet) 650 mg PO Q6HP PRN; Protocol PRN Reason: Per Pain Protocol/Fever > 101 Last Admin: 05/04/21 23:10 Dose: 650 mg Documented by: Albuterol/Ipratropium (Ipratropium/Albuterol 3 Ml Ampul.Neb) 3 ml NEB Q4HRT PRN PRN Reason: Wheezing Bupropion HCl (Bupropion 150 Mg Tab.Xl.24h) 300 mg PO HS [facility] Last Admin: 05/05/21 21:22 Dose: 300 mg Documented by: Chlorthalidone (Chlorthalidone 25 Mg Tablet) 25 mg PO DAILY [facility] Last Admin: 05/06/21 08:12 Dose: 25 mg Documented by: Dextrose (Dextrose 50% 50 Ml Vial) 0 ml IV UD PRN PRN Reason: Hypoglycemia Diagnostic Test (Pha) (Accu-Chek 1 Each Strip) 1 each FS [facility] Last Admin: 05/06/21 07:17 Dose: 1 each Documented by: Diltiazem HCl (Diltiazem 240 Mg Cap.Xl.24h) 240 mg PO DAILY [facility] Last Admin: 05/06/21 08:13 Dose: 240 mg Documented by: Docusate Sodium (Docusate Sodium 100 Mg Capsule) 100 mg PO BID [facility] Last Admin: 05/06/21 08:12 Dose: 100 mg Documented by: Glucose (Dextrose 31 Gm Oral.Susp) 15 gm PO PRN PRN PRN Reason: Hypoglycemia Hydroxyzine HCl (Hydroxyzine 25 Mg Tablet) 25 mg PO Q4-6HP PRN PRN Reason: Anxiety Sodium Chloride (Sodium Chloride 0.9%) 1,000 mls @ 100 mls/hr IV .Q10H [facility] Last Admin: 05/06/21 03:23 Dose: Not Given Documented by: Piperacillin Sod/Tazobactam (Sod 3.375 gm/ Dextrose) 50 mls @ 100 mls/hr IV Q6H [facility]; Protocol Last Infusion: 05/06/21 05:50 Dose: Infused Documented by: Insulin Glargine (Insulin Glargine, Human 1 Unit/0.01 Ml) 50 unit SQ BID [facility] Insulin Human Lispro (Insulin Lispro 1 Unit/0.01 Ml Unit) 0 unit SQ [facility]; Protocol Last Admin: 05/06/21 07:17 Dose: 18 units Documented by: Losartan Potassium (Losartan 50 Mg Tablet) 50 mg PO QDAY [facility] Last Admin: 05/06/21 08:12 Dose: 50 mg Documented by: Morphine Sulfate (Morphine 4 Mg/Ml Vial) 4 mg IV Q4HP PRN; Protocol PRN Reason: Per Pain Protocol Ondansetron HCl (Ondansetron 4 Mg/2 Ml Vial) 4 mg IV Q6HP PRN PRN Reason: Nausea And Vomiting Oxycodone HCl (Oxycodone Hcl 5 Mg Tablet) 5 mg PO Q4HP PRN; Protocol PRN Reason: Per Pain Protocol Last Admin: 05/05/21 03:29 Dose: 5 mg Documented by: Senna (Sennosides 1 Tablet) 2 tab PO HS [facility] Last Admin: 05/05/21 21:22 Dose: Not Given Documented by: Sertraline HCl (Sertraline 50 Mg Tablet) 25 mg PO DAILY [facility] Last Admin: 05/06/21 08:12 Dose: 25 mg Documented by: Sodium Chloride (0.9 % Sodium Chloride 10 Ml Syringe) 10 ml IV Q8 [facility] Last Admin: 05/06/21 06:20 Dose: Not Given Documented by: Zolpidem Tartrate (Zolpidem 5 Mg Tablet) 5 mg PO HSP PRN PRN Reason: Insomnia A/P Assessment and plan (1) Diabetes mellitus type 2, uncontrolled: Status: Acute (2) Morbid obesity: Status: Acute (3) Sepsis: Status: Acute (4) Perianal abscess: Status: Acute (5) Stage 1 acute kidney injury: Status: Acute Narrative A/P Narrative: Assessment and Plans: 1. Perianal abscess with associated clinical sepsis: Stays in inpatient med surg s/p I&D of left ischiorectal abscess by Dr. Rojas on 05/05 NS@100cc/hr Lactic acid Procalcitonin 0.46 Blood culture, no growth to date Intra-operative culture, no growth to date cbc w/ auto diff in the morning to trend WBC Tylenol PRN fever Oxycodone PRN moderate pain Morphine IV PRN severe pain Zosyn 2. Uncontrolled T2DM: HgA1c 8.1 Hold Metformin Increase Lantus from 75 unit HS to 50 unit BID for better glycemic control High dose correctional scale insulin q6hr Accu Chek q6hr Hypoglycemia protocol Diabetic diet 3. Stage 1 acute kidney injury: RESOLVED Avoid nephrotoxic agents NS@100cc/hr CMP in the morning to trend WBC 4. 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 Pseudohyponatremia: Corrected serum sodium level 137 on date of admission 7. Essential HTN: Currently normotensive Continue home regimen of oral antihypertensives GI ppx: not currently indicated DVT ppx: Lovenox Code status: Full Prognosis: Stable Disposition: inpatient Time Spent With Patient Time: Total time spent is greater than 50% in coordination of care (as documented) at patient's floor/unit and/or counseling patient: Total time spent with greater than 50% in coordination of care (as documented) at patient's floor/unit and/or counseling patient:: Greater than 35 minutes QUALITY VTE Deep Vein Thrombosis/Pulmonary Embolism Present on Admission: No
[2021-05-06] MEDS: INSULIN GLARGINE, HUMAN 1 UNIT/0.01 ML SQ SCH ×2 (10:33→21:15)
--- NOTE | 2021-05-06 13:54 | General Surgery Progress Note ---
SUBJECTIVE Subjective Patient information: Note initiated : 05/06/21 at 1:49 pm Service Date, if different from initiated Date: [] Patient: Lele Obrien 35 y/o M admitted on 05/04/21 for Low Back Pain. Chief Complaint: [] Principal diagnosis: Ischio rectal abscess Interval history: Patient is doing well. He has significant reduction in pain. He has moderate amount of bloody drainage from his drains. He has been afebrile. White blood count 15,000, hemoglobin 10.9, hematocrit 32.7, potassium 4.2, BUN 18,, glucose 378 Constitutional Vitals: Vital Signs Temp Pulse Resp BP Pulse Ox 97.5 F 83 18 135/85 98 05/06/21 12:06 05/06/21 12:06 05/06/21 12:06 05/06/21 12:06 05/06/21 12:06 Period Temp Pulse Resp BP Sys/Monet Pulse Ox Last 24 Hr 96.9 F-98.8 F 62-103 18-22 105-149/55-90 94-100 Intake and Output 05/05/21 05/06/21 05/06/21 21:59 05:59 13:59 Intake Total 2580 1100 1480 Output Total 2000 850 Balance 931 433 8833 Weight 336 lb 12.8 oz Intake & Output: Intake & Output 05/05/21 05/06/21 05/06/21 21:59 05:59 13:59 Intake Total 2580 1100 1480 Output Total 2000 850 Balance 782 774 4222 Weight 336 lb 12.8 oz Intake: IV 6604 070 0184 Sodium Chloride 0.9% 1,000 ml @ 1000 1000 100 mls/hr IV .Q10H [facility] Rx#: [id number] Zosyn 3.375 gm In Dextrose 5% 100 100 in Water 50 ml @ 100 mls/hr IV Q6H [facility] Rx#:[id number] Oral 1480 1000 480 Output: Void Amount 2000 850 Other: Meal Dinner Lunch Percent of Meal Consumed 100% 100% Feeding Ability Independent Independent Urine Appearance Clear Clear Urine Color Bright Yellow Bright Yellow Head Head exam: Present atraumatic, normal inspection and normocephalic Eye Eye exam: Present PERRL Pupils: Present normal accommodation and PERRL ENT ENT exam: Present mucous membranes moist, normal exam and normal oropharynx Neck Neck exam: Present full ROM; Absent lymphadenopathy or tenderness Respiratory Respiratory exam: Present normal respiratory exam and CTAB Cardiovascular Cardiovascular exam: Present normal rate and rhythm, RRR, +S1 and +S2; Absent JVD GI/Abdominal GI/Abdominal exam: Present normal bowel sounds and soft; Absent distended or mass Rectal Additional comments: Anal sphincter tone is intact; significant reduction in swelling of the left medial buttock; bloody drainage from the 2 drains in the abscess cavity in the left buttock Extremities Exam Extremities exam: Present full ROM, normal inspection and neurovascular intact; Absent tenderness Neurological Exam Neurological exam: Present alert, normal gait and oriented X3; Absent motor sensory deficit Psychiatric Psychiatric exam: Present normal affect and normal mood A/P Assessment and plan (1) Heavenly-rectal abscess: Status: Acute (2) Diabetes mellitus type 2, uncontrolled: Status: Acute (3) Morbid obesity: Status: Acute Narrative A/P Narrative: Patient is clinically stable. He has been afebrile. He has moderate amount of seropurulent drainage. He will be continued on present antibiotics. Cultures on day tube of pus that was sent yesterday is showing no growth Time Spent With Patient Time: Total time spent is greater than 50% in coordination of care (as documented) at patient's floor/unit and/or counseling patient:
[2021-05-06] MEDS: buPROPion 150 MG TAB.XL.24H PO SCH (21:15)
[2021-05-06] MEDS: SENNOSIDES 1 TABLET PO SCH (21:16)
[2021-05-07] MEDS: INSULIN LISPRO 1 UNIT/0.01 ML UNIT SQ SCH ×6 (01:09→20:25)
[2021-05-07] MEDS: 0.9 % SODIUM CHLORIDE 10 ML SYRINGE IV SCH ×3 (05:15→23:12)
[2021-05-07] MEDS: PIPERACILLIN SODIUM/TAZOBACTAM 3.375 GM in DEXTROSE 5% IN WATER 50 ML IV SCH ×4 (05:21→23:12)
[2021-05-07 06:30] LABS: Basophils # (Auto) 0.13 K/mcL (0.00-0.30); Eosinophils # (Auto) 0.07 K/mcL (0.00-0.70); Eosinophils % (Auto) 0.6 % (0.0-7.0); Hematocrit 33.9 % (40.1-51.0); Hemoglobin 11.1 g/dL (13.7-17.5); Lymphocytes # (Auto) 2.12 K/mcL (1.50-4.80); Lymphocytes % (Auto) 16.9 % (15.5-49.0); Mean Cell Volume 81.7 fL (80.0-100.0); Mean Corpuscular HGB Conc 32.7 g/dL (31.0-36.0); Mean Platelet Volume 9.8 fL (7.4-10.4); Monocytes # (Auto) 0.75 K/mcL (0.10-0.90); Neutrophils % (Auto) 75.5 % (38.0-78.0); Platelet Count 311 K/mcL (140-440); RBC 4.15 M/mcL (4.63-6.08); Red Cell Distribution Width 12.5 % (11.5-14.5)
[2021-05-07 07:00] LABS: ALT/SGPT 18 U/L (<40); AST/SGOT 24 U/L (<40); Albumin 2.7 gm/dL (3.2-5.2); Albumin/Globulin Ratio 0.7 (1.0-2.3); Alkaline Phosphatase 105 U/L (39-117); Bilirubin,Total 0.2 mg/dL (0.1-1.0); Blood Urea Nitrogen 20 mg/dL (6-20); Calcium 8.8 mg/dL (8.6-10.4); Carbon Dioxide 23 mmol/L (22-30); Chloride 103 mmol/L (96-108); Globulin 3.9 gm/dL (2.2-3.7); Glomerular Filtration Rate 115; Glucose 191 mg/dL (70-105)
[2021-05-07 08:10] LABS: WBC 12.6 K/mcL (4.5-11.0)
[2021-05-07] MEDS: ENOXAPARIN 40 MG/0.4 ML SYRINGE SQ SCH (08:30)
[2021-05-07] MEDS: CHLORTHALIDONE 25 MG TABLET PO SCH (08:31)
[2021-05-07] MEDS: INSULIN GLARGINE, HUMAN 1 UNIT/0.01 ML SQ SCH ×2 (08:31→20:25)
[2021-05-07] MEDS: SERTRALINE 50 MG TABLET PO SCH (08:31)
[2021-05-07] MEDS: DOCUSATE SODIUM 100 MG CAPSULE PO SCH ×2 (08:31→20:09)
[2021-05-07] MEDS: LOSARTAN 50 MG TABLET PO SCH (08:31)
[2021-05-07] MEDS: DILTIAZEM 240 MG CAP.XL.24H PO SCH (08:31)
[2021-05-07] MEDS: ACETAMINOPHEN 325 MG TABLET PO PRN (08:36)
--- NOTE | 2021-05-07 09:32 | Internal Med Progress Note ---
SUBJECTIVE Subjective Patient information: Note initiated : 05/07/21 at 9:29 am Service Date, if different from initiated Date: [] Patient: Lele Obrien a 35 y/o M admitted on 05/04/21 for Low Back Pain. Chief Complaint: [ischiorectal abscess] Principal diagnosis: Ischio rectal abscess Interval history: History of present illness: Mr. Obrien is a 35 year old M gentleman history of morbid obesity, type 2 diabetes mellitus, essential hypertension, presenting with 7-day history of swelling and pain of his perianal region. There was no prior similar episode. He denies any trauma or injury to the aforementioned area. Over the past 7 days, he has gradual onset, gradually worsening swelling and pain of his perianal region. He has noticed his left gluteal flow has gradually swollen up and become very inflamed and red, with associated pain up to 9 out of 10 in scale, burning and twisting in nature, constant, possibly alleviated by NSAIDs. He also have associated diaphoresis. He denies any fever or chills. He denies any nausea or vomiting. Exacerbating factors, standing and walking. Alleviating factors: Resting. Vital signs at ED presentations including mild tachycardia with heart rate in the 100s beats per minute, with rest of the vital signs within normal limits. Labs significant for leukocytosis with WBC 28.3. Blood sugar level 497. Serum creatinine level 1.3. 05/05: Afebrile. Blood culture no growth to date. In the OR for abscess drainage by Dr. Rojas now. 05/06: s/p I&D ischiorectal abscess by Dr. Rojas on morning of 05/05. Afebrile overnight. Blood and wound cultures no growth to date. Fasting glucose level 381. c/o 1/10 pain left gluteal region around his surgical site. Denies fever, chills, or sweating. Denies constipation. Good appetite. Denies SOB. 05/07: Afebrile overnight. Blood and wound cultures no growth to date. Fasting glucose level 191. c/o 3/10 pain left gluteal region around his surgical site. Denies fever, chills, or sweating. Denies constipation. Good appetite. Denies SOB. Constitutional Vitals: Vital Signs Temp Pulse Resp BP Pulse Ox 36.1 C 62 22 125/82 97 05/07/21 08:00 05/07/21 08:00 05/07/21 08:00 05/07/21 08:00 05/07/21 08:00 Period Temp Pulse Resp BP Sys/Monet Pulse Ox Last 24 Hr 36.1 C-36.8 C 61-83 14-22 96-135/44-85 93-98 Intake and Output 05/06/21 05/07/21 05/07/21 21:59 05:59 13:59 Intake Total 1250 1550 Output Total 1175 1375 Balance 75 175 Weight 152.044 kg Intake & Output: Intake & Output 05/06/21 05/07/21 05/07/21 21:59 05:59 13:59 Intake Total 1250 1550 Output Total 1175 1375 Balance 75 175 Weight 152.044 kg Intake: IV 100 1100 Sodium Chloride 0.9% 1,000 ml @ 1000 100 mls/hr IV .Q10H OSBALDO Rx#: [id number] Zosyn 3.375 gm In Dextrose 5% 100 100 in Water 50 ml @ 100 mls/hr IV Q6H OSBALDO Rx#:[id number] Oral 1150 450 Output: Void Amount 1175 1375 Other: Meal Dinner Percent of Meal Consumed 100% Urine Appearance Clear Clear Urine Color Bright Yellow Bright Yellow General appearance: cooperative, morbidly obese and no acute distress Head Head exam: Present atraumatic and normal inspection Eye Eye exam: Present normal appearance ENT ENT exam: Present mucous membranes moist, normal exam and normal external ear exam Neck Neck exam: Present normal inspection Respiratory Respiratory exam: Present normal respiratory exam Cardiovascular Cardiovascular exam: Present normal rate and rhythm GI/Abdominal GI/Abdominal exam: Present normal bowel sounds Rectal Additional comments: Left internal gluteal fold with surgical incision, no active bleeding or drainage. Tenderness to palpation, warmth to touch with mild swelling. Back Exam Back exam: Present normal inspection Neurological Exam Neurological exam: Present alert and oriented X3 Skin Skin exam: Present intact and warm OBJ DATA Labs CBC & Chem 7: 05/07/21 04:57 05/07/21 04:57 Labs: Abnormal Lab Results 05/07/21 05/07/21 05/06/21 04:57 04:57 05:17 WBC 12.6 H RBC 4.15 L Hgb 11.1 L Hct 33.9 L MCV Neut % (Auto) Lymph % (Auto) Lymph # (Auto) [place] # (Auto) Absolute Neutrophils 9.49 H VBG Lactic Acid Sodium 131 L Chloride 94 L Anion Gap Creatinine POC Creatinine Glucose 191 H 378 H Hemoglobin A1c Calcium 8.2 L Alkaline Phosphatase Albumin 2.7 L 2.7 L Globulin 3.9 H 4.1 H Albumin/Globulin Ratio 0.7 L 0.7 L Procalcitonin Urine Appearance Urine Glucose (UA) Urine WBC 05/06/21 05/05/21 05/05/21 05:17 05:30 05:30 WBC 15.1 H 21.4 H RBC 4.02 L 4.17 L Hgb 10.9 L 11.5 L Hct 32.7 L 33.2 L MCV 79.6 L Neut % (Auto) 86.8 H 84.8 H Lymph % (Auto) 7.1 L 5.7 L Lymph # (Auto) 1.07 L 1.22 L [place] # (Auto) 1.73 H Absolute Neutrophils 13.06 H 18.16 H VBG Lactic Acid Sodium 128 L Chloride 89 L Anion Gap Creatinine POC Creatinine Glucose 265 H Hemoglobin A1c Calcium Alkaline Phosphatase Albumin 3.1 L Globulin 4.2 H Albumin/Globulin Ratio 0.7 L Procalcitonin Urine Appearance Urine Glucose (UA) Urine WBC 05/04/21 05/04/21 05/04/21 22:57 21:10 20:59 WBC RBC Hgb Hct MCV Neut % (Auto) Lymph % (Auto) Lymph # (Auto) [place] # (Auto) Absolute Neutrophils VBG Lactic Acid 2.8 H Sodium Chloride Anion Gap Creatinine POC Creatinine Glucose Hemoglobin A1c Calcium Alkaline Phosphatase Albumin Globulin Albumin/Globulin Ratio Procalcitonin 0.46 H Urine Appearance Hazy A Urine Glucose (UA) >=500 A Urine WBC 6 H 05/04/21 05/04/21 05/04/21 20:59 18:38 18:04 WBC RBC Hgb Hct MCV Neut % (Auto) Lymph % (Auto) Lymph # (Auto) [place] # (Auto) Absolute Neutrophils VBG Lactic Acid Sodium 127 L Chloride 88 L Anion Gap 17.0 H Creatinine 1.3 H POC Creatinine 1.4 H Glucose 497 H* Hemoglobin A1c 8.1 H Calcium Alkaline Phosphatase 118 H Albumin Globulin 4.3 H Albumin/Globulin Ratio 0.7 L Procalcitonin Urine Appearance Urine Glucose (UA) Urine WBC 05/04/21 18:04 WBC 28.3 H RBC 4.30 L Hgb 11.7 L Hct 34.6 L MCV Neut % (Auto) 85.5 H Lymph % (Auto) 4.8 L Lymph # (Auto) 1.36 L [place] # (Auto) 2.58 H Absolute Neutrophils 24.16 H VBG Lactic Acid Sodium Chloride Anion Gap Creatinine POC Creatinine Glucose Hemoglobin A1c Calcium Alkaline Phosphatase Albumin Globulin Albumin/Globulin Ratio Procalcitonin Urine Appearance Urine Glucose (UA) Urine WBC Meds: Medications Acetaminophen (Acetaminophen 325 Mg Tablet) 650 mg PO Q6HP PRN; Protocol PRN Reason: Per Pain Protocol/Fever > 101 Last Admin: 05/07/21 08:36 Dose: 650 mg Documented by: Albuterol/Ipratropium (Ipratropium/Albuterol 3 Ml Ampul.Neb) 3 ml NEB Q4HRT PRN PRN Reason: Wheezing Bupropion HCl (Bupropion 150 Mg Tab.Xl.24h) 300 mg PO [facility] Last Admin: 05/06/21 21:15 Dose: 300 mg Documented by: Chlorthalidone (Chlorthalidone 25 Mg Tablet) 25 mg PO DAILY [facility] Last Admin: 05/07/21 08:31 Dose: 25 mg Documented by: Dextrose (Dextrose 50% 50 Ml Vial) 0 ml IV UD PRN PRN Reason: Hypoglycemia Diagnostic Test (Pha) (Accu-Chek 1 Each Strip) 1 each FS ACHS [facility] Last Admin: 05/07/21 08:32 Dose: 1 each Documented by: Diltiazem HCl (Diltiazem 240 Mg Cap.Xl.24h) 240 mg PO DAILY [facility] Last Admin: 05/07/21 08:31 Dose: 240 mg Documented by: Docusate Sodium (Docusate Sodium 100 Mg Capsule) 100 mg PO BID [facility] Last Admin: 05/07/21 08:31 Dose: 100 mg Documented by: Enoxaparin Sodium (Enoxaparin 40 Mg/0.4 Ml Syringe) 40 mg SQ DAILY [facility] Last Admin: 05/07/21 08:30 Dose: 40 mg Documented by: Glucose (Dextrose 31 Gm Oral.Susp) 15 gm PO PRN PRN PRN Reason: Hypoglycemia Hydroxyzine HCl (Hydroxyzine 25 Mg Tablet) 25 mg PO Q4-6HP PRN PRN Reason: Anxiety Sodium Chloride (Sodium Chloride 0.9%) 1,000 mls @ 100 mls/hr IV .Q10H [facility] Last Admin: 05/06/21 22:51 Dose: 100 mls/hr Documented by: Piperacillin Sod/Tazobactam (Sod 3.375 gm/ Dextrose) 50 mls @ 100 mls/hr IV Q6H [facility]; Protocol Last Infusion: 05/07/21 05:55 Dose: Infused Documented by: Insulin Glargine (Insulin Glargine, Human 1 Unit/0.01 Ml) 50 unit SQ BID [facility] Last Admin: 05/07/21 08:31 Dose: 50 units Documented by: Insulin Human Lispro (Insulin Lispro 1 Unit/0.01 Ml Unit) 0 unit SQ ACHS [facility]; Protocol Last Admin: 05/07/21 08:32 Dose: Not Given Documented by: Losartan Potassium (Losartan 50 Mg Tablet) 50 mg PO QDAY [facility] Last Admin: 05/07/21 08:31 Dose: 50 mg Documented by: Morphine Sulfate (Morphine 4 Mg/Ml Vial) 4 mg IV Q4HP PRN; Protocol PRN Reason: Per Pain Protocol Ondansetron HCl (Ondansetron 4 Mg/2 Ml Vial) 4 mg IV Q6HP PRN PRN Reason: Nausea And Vomiting Oxycodone HCl (Oxycodone Hcl 5 Mg Tablet) 5 mg PO Q4HP PRN; Protocol PRN Reason: Per Pain Protocol Last Admin: 05/05/21 03:29 Dose: 5 mg Documented by: Senna (Sennosides 1 Tablet) 2 tab PO HS [facility] Last Admin: 05/06/21 21:16 Dose: Not Given Documented by: Sertraline HCl (Sertraline 50 Mg Tablet) 25 mg PO DAILY [facility] Last Admin: 05/07/21 08:31 Dose: 25 mg Documented by: Sodium Chloride (0.9 % Sodium Chloride 10 Ml Syringe) 10 ml IV Q8 [facility] Last Admin: 05/07/21 05:15 Dose: Not Given Documented by: Zolpidem Tartrate (Zolpidem 5 Mg Tablet) 5 mg PO HSP PRN PRN Reason: Insomnia A/P Assessment and plan (1) Diabetes mellitus type 2, uncontrolled: Status: Acute (2) Morbid obesity: Status: Acute (3) Sepsis: Status: Acute (4) Perianal abscess: Status: Acute (5) Stage 1 acute kidney injury: Status: Acute Narrative A/P Narrative: Assessment and Plans: 1. Perianal abscess with associated clinical sepsis: Stays in inpatient med surg s/p I&D of left ischiorectal abscess by Dr. Rojas on 05/05 NS@100cc/hr Lactic acid Procalcitonin 0.46 Blood culture, no growth to date Intra-operative culture, no growth to date cbc w/ auto diff in the morning to trend WBC Tylenol PRN fever Oxycodone PRN moderate pain Morphine IV PRN severe pain Zosyn 2. Uncontrolled T2DM: HgA1c 8.1 Hold Metformin Lantus 50 unit BID High dose correctional scale insulin q6hr Accu Chek q6hr Hypoglycemia protocol Diabetic diet 3. Stage 1 acute kidney injury: RESOLVED Avoid nephrotoxic agents NS@100cc/hr CMP in the morning to trend WBC 4. 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 Pseudohyponatremia: Corrected serum sodium level 137 on date of admission 7. Essential HTN: Currently normotensive Continue home regimen of oral antihypertensives GI ppx: not currently indicated DVT ppx: Lovenox Code status: Full Prognosis: Stable Disposition: inpatient Time Spent With Patient Time: Total time spent is greater than 50% in coordination of care (as documented) at patient's floor/unit and/or counseling patient: Total time spent with greater than 50% in coordination of care (as documented) at patient's floor/unit and/or counseling patient:: Greater than 35 minutes QUALITY VTE Deep Vein Thrombosis/Pulmonary Embolism Present on Admission: No
[2021-05-07] MEDS: 0.9 % SODIUM CHLORIDE 1,000 ML IV SCH ×3 (10:00→23:10)
--- NOTE | 2021-05-07 13:38 | General Surgery Progress Note ---
SUBJECTIVE Subjective Patient information: Note initiated : 05/07/21 at 1:33 pm Service Date, if different from initiated Date: [] Patient: Lele Obrien 35 y/o M admitted on 05/04/21 for Low Back Pain. Chief Complaint: [] Principal diagnosis: Ischio rectal abscess Interval history: Patient feels much better. Overall strength is improved. He is afebrile. White blood count 12.6, hemoglobin 11.1, hematocrit 33.9, potassium 3.5, BUN 20, creatinine 0.8, glucose 191,. Culture and sensitivity of the large volume of pus that was sent is still negative in spite of the sepsis and in spite of the large volume of infection that he had. Constitutional Vitals: Vital Signs Temp Pulse Resp BP Pulse Ox 98.1 F 70 22 137/85 98 05/07/21 12:00 05/07/21 12:00 05/07/21 12:00 05/07/21 12:00 05/07/21 12:00 Period Temp Pulse Resp BP Sys/Monet Pulse Ox Last 24 Hr 97.0 F-98.3 F 61-75 14-22 96-137/44-85 93-98 Intake and Output 05/06/21 05/07/21 05/07/21 21:59 05:59 13:59 Intake Total 1250 1550 1050 Output Total 1175 1375 250 Balance 75 175 800 Weight 335 lb 3.2 oz Intake & Output: Intake & Output 05/06/21 05/07/21 05/07/21 21:59 05:59 13:59 Intake Total 1250 1550 1050 Output Total 1175 1375 250 Balance 75 175 800 Weight 335 lb 3.2 oz Intake: IV 100 1100 1050 Sodium Chloride 0.9% 1,000 ml @ 1000 1000 100 mls/hr IV .Q10H [facility]BALDO Rx#: [id number] Zosyn 3.375 gm In Dextrose 5% 100 100 50 in Water 50 ml @ 100 mls/hr IV Q6H OSBALDO Rx#:[id number] Oral 1150 450 Output: Void Amount 1175 1375 250 Other: Meal Dinner Lunch Percent of Meal Consumed 100% 100% Urine Appearance Clear Clear Urine Color Bright Yellow Bright Yellow Head Head exam: Present atraumatic, normal inspection and normocephalic Eye Eye exam: Present EOMI Pupils: Present normal accommodation and PERRL ENT ENT exam: Present normal external ear exam and normal oropharynx Neck Neck exam: Present full ROM and normal inspection Respiratory Respiratory exam: Present normal respiratory exam and CTAB Cardiovascular Cardiovascular exam: Present normal rate and rhythm, RRR, +S1 and +S2; Absent JVD GI/Abdominal GI/Abdominal exam: Present normal bowel sounds and soft; Absent distended, mass or tenderness Rectal Additional comments: Tenderness and induration of left medial buttock significantly improved. He has small amount of bloody drainage through his drains. Extremities Exam Extremities exam: Present normal inspection and neurovascular intact Neurological Exam Neurological exam: Present alert, normal gait and oriented X3; Absent motor sensory deficit Psychiatric Psychiatric exam: Present normal affect and normal mood; Absent anxious Skin Skin exam: Absent erythema or urticaria A/P Assessment and plan (1) Heavenly-rectal abscess: Status: Acute (2) Diabetes mellitus type 2, uncontrolled: Status: Acute (3) Stage 1 acute kidney injury: Status: Acute (4) Sepsis: Status: Acute Narrative A/P Narrative: Patient will be continued on present therapy. Time Spent With Patient Time: Total time spent is greater than 50% in coordination of care (as documented) at patient's floor/unit and/or counseling patient:
[2021-05-07] MEDS: SENNOSIDES 1 TABLET PO SCH (20:09)
[2021-05-07] MEDS: buPROPion 150 MG TAB.XL.24H PO SCH (20:09)
[2021-05-07] MEDS: oxyCODONE HCL 5 MG TABLET PO PRN (20:09)
[2021-05-08] MEDS: PIPERACILLIN SODIUM/TAZOBACTAM 3.375 GM in DEXTROSE 5% IN WATER 50 ML IV SCH (05:22)
[2021-05-08] MEDS: 0.9 % SODIUM CHLORIDE 1,000 ML IV SCH ×2 (05:22→11:11)
[2021-05-08] MEDS: 0.9 % SODIUM CHLORIDE 10 ML SYRINGE IV SCH (05:23)
[2021-05-08 06:59] LABS: Basophils # (Auto) 0.08 K/mcL (0.00-0.30); Basophils % (Auto) 0.7 % (0.0-2.0); Eosinophils # (Auto) 0.23 K/mcL (0.00-0.70); Eosinophils % (Auto) 2.1 % (0.0-7.0); Hematocrit 35.7 % (40.1-51.0); Lymphocytes # (Auto) 2.81 K/mcL (1.50-4.80); Lymphocytes % (Auto) 25.4 % (15.5-49.0); Mean Cell Volume 80.8 fL (80.0-100.0); Mean Corpuscular HGB Conc 33.6 g/dL (31.0-36.0); Mean Platelet Volume 9.3 fL (7.4-10.4); Monocytes # (Auto) 0.72 K/mcL (0.10-0.90); Monocytes % (Auto) 6.5 % (1.0-12.0); Neutrophils % (Auto) 65.3 % (38.0-78.0); Platelet Count 347 K/mcL (140-440); RBC 4.42 M/mcL (4.63-6.08); Red Cell Distribution Width 12.4 % (11.5-14.5)
[2021-05-08 07:02] LABS: ALT/SGPT 107 U/L (<40); AST/SGOT 106 U/L (<40); Albumin/Globulin Ratio 0.8 (1.0-2.3); Alkaline Phosphatase 105 U/L (39-117); Bilirubin,Total 0.3 mg/dL (0.1-1.0); Blood Urea Nitrogen 14 mg/dL (6-20); Calcium 8.7 mg/dL (8.6-10.4); Carbon Dioxide 27 mmol/L (22-30); Chloride 100 mmol/L (96-108); Globulin 3.9 gm/dL (2.2-3.7); Glomerular Filtration Rate 115; Glucose 138 mg/dL (70-105)
[2021-05-08] MEDS: INSULIN LISPRO 1 UNIT/0.01 ML UNIT SQ SCH ×2 (07:35→11:12)
[2021-05-08 08:08] LABS: WBC 11.1 K/mcL (4.5-11.0)
[2021-05-08] MEDS: ACETAMINOPHEN 325 MG TABLET PO PRN (08:19)
[2021-05-08] MEDS: DOCUSATE SODIUM 100 MG CAPSULE PO SCH (08:19)
[2021-05-08] MEDS: CHLORTHALIDONE 25 MG TABLET PO SCH (08:19)
[2021-05-08] MEDS: DILTIAZEM 240 MG CAP.XL.24H PO SCH (08:20)
[2021-05-08] MEDS: LOSARTAN 50 MG TABLET PO SCH (08:21)
[2021-05-08] MEDS: SERTRALINE 50 MG TABLET PO SCH (08:21)
[2021-05-08] MEDS: INSULIN GLARGINE, HUMAN 1 UNIT/0.01 ML SQ SCH (08:22)
[2021-05-08] MEDS: ENOXAPARIN 40 MG/0.4 ML SYRINGE SQ SCH (08:23)
--- NOTE | 2021-05-08 10:13 | Internal Med Progress Note ---
SUBJECTIVE Subjective Patient information: Note initiated : 05/08/21 at 10:11 am Service Date, if different from initiated Date: [] Patient: Lele Obrien a 35 y/o M admitted on 05/04/21 for Low Back Pain. Chief Complaint: [Ischiorectal abscess] Principal diagnosis: Ischio rectal abscess Interval history: History of present illness: Mr. Obrien is a 35 year old M gentleman history of morbid obesity, type 2 diabetes mellitus, essential hypertension, presenting with 7-day history of swelling and pain of his perianal region. There was no prior similar episode. He denies any trauma or injury to the aforementioned area. Over the past 7 days, he has gradual onset, gradually worsening swelling and pain of his perianal region. He has noticed his left gluteal flow has gradually swollen up and become very inflamed and red, with associated pain up to 9 out of 10 in scale, burning and twisting in nature, constant, possibly alleviated by NSAIDs. He also have associated diaphoresis. He denies any fever or chills. He denies any nausea or vomiting. Exacerbating factors, standing and walking. Alleviating factors: Resting. Vital signs at ED presentations including mild tachycardia with heart rate in the 100s beats per minute, with rest of the vital signs within normal limits. Labs significant for leukocytosis with WBC 28.3. Blood sugar level 497. Serum creatinine level 1.3. 05/05: Afebrile. Blood culture no growth to date. In the OR for abscess drainage by Dr. Rojas now. 05/06: s/p I&D ischiorectal abscess by Dr. Rojas on morning of 05/05. Afebrile overnight. Blood and wound cultures no growth to date. Fasting glucose level 381. c/o 1/10 pain left gluteal region around his surgical site. Denies fever, chills, or sweating. Denies constipation. Good appetite. Denies SOB. 05/07: Afebrile overnight. Blood and wound cultures no growth to date. Fasting glucose level 191. c/o 3/10 pain left gluteal region around his surgical site. Denies fever, chills, or sweating. Denies constipation. Good appetite. Denies SOB. 05/08: Afebrile overnight. Blood and wound cultures no growth to date. Fasting glucose level 138. c/o 1/10 pain left gluteal region around his surgical site. Denies fever, chills, or sweating. Denies constipation. Good appetite. Denies SOB. Constitutional Vitals: Vital Signs Temp Pulse Resp BP Pulse Ox 36.3 C 66 17 131/86 95 05/08/21 08:49 05/08/21 08:49 05/08/21 08:49 05/08/21 08:49 05/08/21 08:49 Period Temp Pulse Resp BP Sys/Monet Pulse Ox Last 24 Hr 36.1 C-37.0 C 66-76 12-22 131-145/85-94 94-98 Intake and Output 05/07/21 05/08/21 05/08/21 21:59 05:59 13:59 Intake Total 1530 850 50 Output Total 850 1100 Balance 680 -250 50 Weight 148.914 kg Intake & Output: Intake & Output 05/07/21 05/08/21 05/08/21 21:59 05:59 13:59 Intake Total 1530 850 50 Output Total 850 1100 Balance 680 -250 50 Weight 148.914 kg Intake: IV 1050 50 50 Sodium Chloride 0.9% 1,000 ml @ 1000 100 mls/hr IV .Q10H [facility] Rx#: [id number] Zosyn 3.375 gm In Dextrose 5% 50 50 50 in Water 50 ml @ 100 mls/hr IV Q6H [facility]BALDO Rx#:[id number] Oral 480 800 Output: Void Amount 850 1100 Other: Meal Dinner Percent of Meal Consumed 100% Feeding Ability Independent Urine Appearance Clear Clear Urine Color Bright Yellow Bright Yellow General appearance: cooperative, morbidly obese and no acute distress Head Head exam: Present atraumatic and normal inspection Eye Eye exam: Present normal appearance ENT ENT exam: Present mucous membranes moist, normal exam and normal external ear exam Neck Neck exam: Present normal inspection Respiratory Respiratory exam: Present normal respiratory exam Cardiovascular Cardiovascular exam: Present normal rate and rhythm GI/Abdominal GI/Abdominal exam: Present normal bowel sounds Rectal Additional comments: Left internal gluteal fold with surgical incision, no active bleeding or drainage. Tenderness to palpation, warmth to touch with mild swelling. Back Exam Back exam: Present normal inspection Neurological Exam Neurological exam: Present alert and oriented X3 Skin Skin exam: Present intact and warm OBJ DATA Labs CBC & Chem 7: 05/08/21 05:45 05/08/21 05:45 Labs: Abnormal Lab Results 05/08/21 05/08/21 05/07/21 05:45 05:45 04:57 WBC 11.1 H RBC 4.42 L Hgb 12.0 L Hct 35.7 L Neut % (Auto) Lymph % (Auto) Lymph # (Auto) Absolute Neutrophils Sodium Chloride Glucose 138 H 191 H Calcium AST 106 H ALT 107 H Albumin 3.0 L 2.7 L Globulin 3.9 H 3.9 H Albumin/Globulin Ratio 0.8 L 0.7 L 05/07/21 05/06/21 05/06/21 04:57 05:17 05:17 WBC 12.6 H 15.1 H RBC 4.15 L 4.02 L Hgb 11.1 L 10.9 L Hct 33.9 L 32.7 L Neut % (Auto) 86.8 H Lymph % (Auto) 7.1 L Lymph # (Auto) 1.07 L Absolute Neutrophils 9.49 H 13.06 H Sodium 131 L Chloride 94 L Glucose 378 H Calcium 8.2 L AST ALT Albumin 2.7 L Globulin 4.1 H Albumin/Globulin Ratio 0.7 L Meds: Medications Acetaminophen (Acetaminophen 325 Mg Tablet) 650 mg PO Q6HP PRN; Protocol PRN Reason: Per Pain Protocol/Fever > 101 Last Admin: 05/08/21 08:19 Dose: 650 mg Documented by: Albuterol/Ipratropium (Ipratropium/Albuterol 3 Ml Ampul.Neb) 3 ml NEB Q4HRT PRN PRN Reason: Wheezing Bupropion HCl (Bupropion 150 Mg Tab.Xl.24h) 300 mg PO HS [facility] Last Admin: 05/07/21 20:09 Dose: 300 mg Documented by: Chlorthalidone (Chlorthalidone 25 Mg Tablet) 25 mg PO DAILY [facility] Last Admin: 05/08/21 08:19 Dose: 25 mg Documented by: Dextrose (Dextrose 50% 50 Ml Vial) 0 ml IV UD PRN PRN Reason: Hypoglycemia Diagnostic Test (Pha) (Accu-Chek 1 Each Strip) 1 each FS ACHS [facility] Last Admin: 05/08/21 07:34 Dose: 1 each Documented by: Diltiazem HCl (Diltiazem 240 Mg Cap.Xl.24h) 240 mg PO DAILY [facility] Last Admin: 05/08/21 08:20 Dose: 240 mg Documented by: Docusate Sodium (Docusate Sodium 100 Mg Capsule) 100 mg PO BID [facility] Last Admin: 05/08/21 08:19 Dose: 100 mg Documented by: Enoxaparin Sodium (Enoxaparin 40 Mg/0.4 Ml Syringe) 40 mg SQ DAILY [facility] Last Admin: 05/08/21 08:23 Dose: Not Given Documented by: Glucose (Dextrose 31 Gm Oral.Susp) 15 gm PO PRN PRN PRN Reason: Hypoglycemia Hydroxyzine HCl (Hydroxyzine 25 Mg Tablet) 25 mg PO Q4-6HP PRN PRN Reason: Anxiety Sodium Chloride (Sodium Chloride 0.9%) 1,000 mls @ 100 mls/hr IV .Q10H [facility] Last Admin: 05/08/21 05:22 Dose: Not Given Documented by: Piperacillin Sod/Tazobactam (Sod 3.375 gm/ Dextrose) 50 mls @ 100 mls/hr IV Q6H [facility]; Protocol Last Infusion: 05/08/21 06:48 Dose: Infused Documented by: Insulin Glargine (Insulin Glargine, Human 1 Unit/0.01 Ml) 50 unit SQ BID [facility] Last Admin: 05/08/21 08:22 Dose: 50 units Documented by: Insulin Human Lispro (Insulin Lispro 1 Unit/0.01 Ml Unit) 0 unit SQ ACHS [facility]; Protocol Last Admin: 05/08/21 07:35 Dose: Not Given Documented by: Losartan Potassium (Losartan 50 Mg Tablet) 50 mg PO QDAY [facility] Last Admin: 05/08/21 08:21 Dose: 50 mg Documented by: Morphine Sulfate (Morphine 4 Mg/Ml Vial) 4 mg IV Q4HP PRN; Protocol PRN Reason: Per Pain Protocol Ondansetron HCl (Ondansetron 4 Mg/2 Ml Vial) 4 mg IV Q6HP PRN PRN Reason: Nausea And Vomiting Oxycodone HCl (Oxycodone Hcl 5 Mg Tablet) 5 mg PO Q4HP PRN; Protocol PRN Reason: Per Pain Protocol Last Admin: 05/07/21 20:09 Dose: 5 mg Documented by: Senna (Sennosides 1 Tablet) 2 tab PO HS [facility] Last Admin: 05/07/21 20:09 Dose: 2 tab Documented by: Sertraline HCl (Sertraline 50 Mg Tablet) 25 mg PO DAILY [facility] Last Admin: 05/08/21 08:21 Dose: 25 mg Documented by: Sodium Chloride (0.9 % Sodium Chloride 10 Ml Syringe) 10 ml IV Q8 [facility] Last Admin: 05/08/21 05:23 Dose: Not Given Documented by: Zolpidem Tartrate (Zolpidem 5 Mg Tablet) 5 mg PO HSP PRN PRN Reason: Insomnia A/P Assessment and plan (1) Diabetes mellitus type 2, uncontrolled: Status: Acute (2) Morbid obesity: Status: Acute (3) Sepsis: Status: Acute (4) Perianal abscess: Status: Acute (5) Stage 1 acute kidney injury: Status: Acute Narrative A/P Narrative: Assessment and Plans: 1. Perianal abscess with associated clinical sepsis: Stays in inpatient med surg s/p I&D of left ischiorectal abscess by Dr. Rojas on 05/05 NS@100cc/hr Lactic acid Procalcitonin 0.46 Blood culture, no growth to date Intra-operative culture, no growth to date cbc w/ auto diff in the morning to trend WBC Tylenol PRN fever Oxycodone PRN moderate pain Morphine IV PRN severe pain Zosyn 2. Uncontrolled T2DM: HgA1c 8.1 Hold Metformin Lantus 50 unit BID High dose correctional scale insulin q6hr Accu Chek q6hr Hypoglycemia protocol Diabetic diet 3. Stage 1 acute kidney injury: RESOLVED Avoid nephrotoxic agents NS@100cc/hr CMP in the morning to trend WBC 4. 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 Pseudohyponatremia: Corrected serum sodium level 137 on date of admission 7. Essential HTN: Currently normotensive Continue home regimen of oral antihypertensives GI ppx: not currently indicated DVT ppx: Lovenox Code status: Full Prognosis: Stable Disposition: inpatient Time Spent With Patient Time: Total time spent is greater than 50% in coordination of care (as documented) at patient's floor/unit and/or counseling patient: Total time spent with greater than 50% in coordination of care (as documented) at patient's floor/unit and/or counseling patient:: 25 - 35 minutes QUALITY VTE Deep Vein Thrombosis/Pulmonary Embolism Present on Admission: No
--- NOTE | 2021-05-08 13:13 | General Surgery Progress Note ---
SUBJECTIVE Subjective Patient information: Note initiated : 05/08/21 at 1:08 pm Service Date, if different from initiated Date: [] Patient: Lele Obrien 35 y/o M admitted on 05/04/21 for Low Back Pain. Chief Complaint: [] Principal diagnosis: Ischio rectal abscess Interval history: Patient continues to do well. He is afebrile. He has moderate amount of bloody purulent drainage but the abscess cavity wall very soft and he does not have any tenderness. He is afebrile. Cultures are growing out group B Streptococcus. White blood count 11.1, hemoglobin 12, potassium 3.4, BUN 14, creatinine 0.8, glucose 138. Constitutional Vitals: Vital Signs Temp Pulse Resp BP Pulse Ox 97.9 F 70 18 131/87 96 05/08/21 12:00 05/08/21 12:00 05/08/21 12:00 05/08/21 12:00 05/08/21 12:00 Period Temp Pulse Resp BP Sys/Monet Pulse Ox Last 24 Hr 97 F-98.6 F 66-76 12-18 131-145/86-94 94-97 Intake and Output 05/07/21 05/08/21 05/08/21 21:59 05:59 13:59 Intake Total 7032 997 2214 Output Total 850 1100 Balance 680 -250 1050 Weight 328 lb 4.8 oz Intake & Output: Intake & Output 05/07/21 05/08/21 05/08/21 21:59 05:59 13:59 Intake Total 8842 364 5631 Output Total 850 1100 Balance 680 -250 1050 Weight 328 lb 4.8 oz Intake: IV 1050 50 1050 Sodium Chloride 0.9% 1,000 ml @ 1000 1000 100 mls/hr IV .Q10H OSBADLO Rx#: [id number] Zosyn 3.375 gm In Dextrose 5% 50 50 50 in Water 50 ml @ 100 mls/hr IV Q6H OSBALDO Rx#:[id number] Oral 480 800 Output: Void Amount 850 1100 Other: Meal Dinner Percent of Meal Consumed 100% Feeding Ability Independent Urine Appearance Clear Clear Urine Color Bright Yellow Bright Yellow ENT ENT exam: Present mucous membranes moist, normal exam and normal external ear exam Neck Neck exam: Present full ROM and normal inspection Respiratory Respiratory exam: Present normal respiratory exam and CTAB; Absent wheezes Cardiovascular Cardiovascular exam: Present normal rate and rhythm, RRR, +S1 and +S2; Absent JVD GI/Abdominal GI/Abdominal exam: Present normal bowel sounds and soft; Absent distended or tenderness Rectal Additional comments: Left perirectal space is significantly improved. Small amount of bloody drainage noted Extremities Exam Extremities exam: Present normal inspection and neurovascular intact; Absent pedal edema Neurological Exam Neurological exam: Present alert, normal gait and oriented X3; Absent motor sensory deficit Psychiatric Psychiatric exam: Present normal affect and normal mood A/P Assessment and plan (1) Heavenly-rectal abscess: Status: Acute (2) Stage 1 acute kidney injury: Status: Acute (3) Diabetes mellitus type 2, uncontrolled: Status: Acute (4) Morbid obesity: Status: Acute Narrative A/P Narrative: Patient is clinically stable for discharge He will be seen in our office in 2 weeks He will be continued on antibiotics for 2 to 3 weeks based on his healing, Time Spent With Patient Time: Total time spent is greater than 50% in coordination of care (as documented) at patient's floor/unit and/or counseling patient:
--- NOTE | 2021-05-08 13:14 | Discharge Summary ---
Discharge Provider Provider Patient information: Note initiated : 05/08/21 at 1:09 pm Service Date, if different from initiated Date: [] Patient: Lele Obrien 35 y/o M admitted on 05/04/21 for Low Back Pain. Chief Complaint: [] Date of admission: 05/04/21 20:51 Discharge date: 05/08/21 Primary care physician: Olena Gongora Attending physician on admission: Nawaf John Consults: 05/04/21 Consult to Physician [CONS] Stat Comment: Consulting Provider: Nawaf John Reason For Exam: Physician to Consult Consult to Physician [CONS] Stat Comment: Consulting Provider: Edson Rojas Reason For Exam: Physician to Consult Attending physician on discharge: Nawaf John Discharge Meds Discharge Medications Home Medications Trulicity 0.5 ml .ROUTE WEEKLY 05/04/21 [History Confirmed 05/05/21 Last Taken 05/02/21 20:00] losartan 50 mg tablet 50 mg PO QDAY 05/04/21 [History Confirmed 05/04/21 Last Taken 05/03/21 15:00] Aspirin Child 81 mg PO DAILY 05/05/21 [History Confirmed 05/05/21 Last Taken 05/04/21 08:00 81 mg] bupropion HCl 300 mg PO QHS 05/05/21 [History Confirmed 05/05/21 Last Taken 05/04/21 300 mg] chlorthalidone 25 mg PO DAILY 05/05/21 [History Confirmed 05/05/21 Last Taken 05/04/21 08:00 25 mg] diltiazem HCl 240 mg PO DAILY 05/05/21 [History Confirmed 05/05/21 Last Taken 05/04/21 09:00] ergocalciferol (vitamin D2) 1.25 mg PO WEEKLY 05/05/21 [History Confirmed 05/05/21 Last Taken Unknown] ferrous sulfate 325 mg PO 2-3XW 05/05/21 [History Confirmed 05/05/21 Last Taken 05/04/21] hydroxyzine pamoate 25 mg PO Q4-6HP PRN 05/05/21 [History Confirmed 05/05/21 Last Taken 05/05/21 25 mg] metoprolol succinate 100 mg PO DAILY 05/05/21 [History Confirmed 05/05/21 Last Taken 05/04/21 09:00] sertraline 25 mg PO DAILY 05/05/21 [History Confirmed 05/05/21 Last Taken 05/04/21 09:00] amoxicillin 875 mg-potassium clavulanate 125 mg tablet (Augmentin) 1 tab PO BID #20 tab 05/08/21 [Rx Last Taken Unknown] oxycodone 5 mg tablet 5 mg PO Q6HP PRN #30 tab 05/08/21 [Rx Last Taken Unknown] COURSE Hospital Course Hospital course: History of present illness: Mr. Obrien is a 35 year old M gentleman history of morbid obesity, type 2 diabetes mellitus, essential hypertension, presenting with 7-day history of swelling and pain of his perianal region. There was no prior similar episode. He denies any trauma or injury to the aforementioned area. Over the past 7 days, he has gradual onset, gradually worsening swelling and pain of his perianal region. He has noticed his left gluteal flow has gradually swollen up and become very inflamed and red, with associated pain up to 9 out of 10 in scale, burning and twisting in nature, constant, possibly alleviated by NSAIDs. He also have associated diaphoresis. He denies any fever or chills. He denies any nausea or vomiting. Exacerbating factors, standing and walking. Alleviating factors: Resting. Vital signs at ED presentations including mild tachycardia with heart rate in the 100s beats per minute, with rest of the vital signs within normal limits. Labs significant for leukocytosis with WBC 28.3. Blood sugar level 497. Serum creatinine level 1.3. 05/05: Afebrile. Blood culture no growth to date. In the OR for abscess drainage by Dr. Rojas now. 05/06: s/p I&D ischiorectal abscess by Dr. Roajs on morning of 05/05. Afebrile overnight. Blood and wound cultures no growth to date. Fasting glucose level 381. c/o 1/10 pain left gluteal region around his surgical site. Denies fever, chills, or sweating. Denies constipation. Good appetite. Denies SOB. 05/07: Afebrile overnight. Blood and wound cultures no growth to date. Fasting glucose level 191. c/o 3/10 pain left gluteal region around his surgical site. Denies fever, chills, or sweating. Denies constipation. Good appetite. Denies SOB. 05/08: Wound culture growing Group B strep. Reached clinical stability, afebrile for more than 24 hours, improving leukocytosis, and blood glucose controlled. Decided to discharge home with Rx Augmentin and narcotics given. 2 week follow up appointment with Dr. Rojas made for him. All questions answered prior to patient being physically discharged. Discharge diagnosis: Ischiorectal abscess Time Spent with Patient Time attestation: Total time spent providing and/or coordinating discharge services: Time spent: Less than 30 minutes EXAM Constitutional Vitals: Temp Pulse Resp BP Pulse Ox 36.6 C 70 18 131/87 96 05/08/21 12:00 05/08/21 12:00 05/08/21 12:00 05/08/21 12:00 05/08/21 12:00 General appearance: cooperative and no acute distress Head Head exam: Present atraumatic and normocephalic Eye Eye exam: Present EOMI and PERRL ENT ENT exam: Present mucous membranes moist, normal exam and normal external ear exam Neck Neck exam: Present normal inspection; Absent lymphadenopathy, tenderness or thyromegaly Respiratory Respiratory exam: Absent accessory muscle use, respiratory distress or wheezes Cardiovascular Cardiovascular exam: Present normal rate and rhythm; Absent JVD GI/Abdominal GI/Abdominal exam: Present normal bowel sounds and soft; Absent organomegaly or tenderness Rectal Rectal exam: Present deferred Additional comments: Left gluteal found with surgical incision with drain left in place, mild surrounding erythema, swelling, and tenderness. Extremities Exam Extremities exam: Present full ROM, normal capillary refill and normal inspection; Absent tenderness Neurological Exam Neurological exam: Present alert, CN II-XII intact and oriented X3; Absent motor sensory deficit Psychiatric Psychiatric exam: Present normal affect and normal mood; Absent anxious or depressed Skin Skin exam: Present dry and intact Discharge Data Data Completed and Pending Labs on day of discharge: Labs from last 24 hours 05/08/21 05/08/21 05:45 05:45 WBC 11.1 H RBC 4.42 L Hgb 12.0 L Hct 35.7 L MCV 80.8 MCH 27.1 MCHC 33.6 RDW 12.4 Plt Count 347 MPV 9.3 Neut % (Auto) 65.3 Lymph % (Auto) 25.4 Collier % (Auto) 6.5 Eos % (Auto) 2.1 Baso % (Auto) 0.7 Lymph # (Auto) 2.81 Collier # (Auto) 0.72 Eos # (Auto) 0.23 Baso # (Auto) 0.08 Absolute Neutrophils 7.23 Sodium 138 Potassium 3.4 Chloride 100 Carbon Dioxide 27 Anion Gap 11.0 BUN 14 Creatinine 0.8 GFR Calculation 115 Glucose 138 H Calcium 8.7 Magnesium 1.6 Total Bilirubin 0.3 AST 106 H ALT 107 H Alkaline Phosphatase 105 Total Protein 6.9 Albumin 3.0 L Globulin 3.9 H Albumin/Globulin Ratio 0.8 L Preliminary micro results at discharge 05/05/21 11:47 Gram Stain - Preliminary Buttock - Left Anaerobic Culture - Preliminary Gram Stain - Preliminary Abscess Culture - Preliminary Strep agalactiae - (group b) Gram negative bacillus 05/04/21 19:56 Blood Culture - Preliminary Blood 05/04/21 19:53 Blood Culture - Preliminary Blood Discharge Plan Patient/Caregiver Discharge Instructions Activity: increase activity as tolerated Diet: Consistent Carbohydrate Prescriptions: New oxycodone 5 mg Tablet 5 mg PO Q6HP PRN (Reason: Per Pain Protocol) Qty: 30 0RF amoxicillin-pot clavulanate [Augmentin] 875-125 mg tablet 1 tab PO BID Qty: 20 0RF Continued Trulicity 0.5 ml pen injector 0.5 ml .Route WEEKLY 0RF Rx Instructions: inject under the skin once per week losartan 50 mg Tablet 50 mg PO QDAY 0RF ferrous sulfate 325 mg 325 mg PO 2-3XW 0RF Rx Instructions: every other day orally bupropion HCl 300 mg 300 mg PO QHS 0RF hydroxyzine pamoate 25 mg 25 mg PO Q4-6HP PRN (Reason: Anxiety) 0RF Aspirin Child 81 mg 81 mg PO DAILY 0RF chlorthalidone 25 mg 25 mg PO DAILY 0RF diltiazem HCl 240 mg 240 mg PO DAILY 0RF ergocalciferol (vitamin D2) 1.25 mg 1.25 mg PO WEEKLY 0RF metoprolol succinate 100 mg 100 mg PO DAILY 0RF sertraline 25 mg 25 mg PO DAILY 0RF Follow Up Plan Follow up with: Edson Rojas MD [Physician] - (in 2 week) Olena Gongora MD [Primary Care Provider] - Patient Disposition: Home, Self-Care Rehab Potential: Good I certify that the patient requires SNF services: No Overall status at discharge: patient is progressing back to baseline Discharge Orders: Discharge Order (Routine); Ordered 05/08/21 Ordered By: Nawaf COHN VTE Deep Vein Thrombosis/Pulmonary Embolism Present on Admission: No
--- NOTE | 2021-05-09 12:36 | Operative Note ---
DATE OF OPERATION: 05/05/2021 PREOPERATIVE DIAGNOSIS: Perirectal abscess. POSTOPERATIVE DIAGNOSIS: Ischiorectal abscess. PROCEDURE: Incision and drainage of ischiorectal abscess. SURGEON: Edson Rojas M.D. FINDINGS: A very large abscess cavity of the left ischiorectal space extending above the pelvic floor to the base of the prostate and around one-half the circumference of the rectum. DESCRIPTION OF PROCEDURE: Under general anesthesia, the patient was placed in high lithotomy position. He was prepped and draped. Timeout procedure was carried out as per protocol. The bulging left medial buttock was aspirated of 20 mL of pus and this was sent for culture. An incision was made transversely in the area of aspiration until it extended into a very large abscess cavity. Large quantity of pus with blood was suctioned. Finger was placed into the large cavity and the cavity extended longer than the length of my finger, even when I pushed it up a full distance. There were multiple loculations, which were fractured with a finger. A counterincision was made proximal and distal to the middle incision. Quarter-inch Naeem drains were then placed through these incisions and were sutured with 2-0 Prolene. Another liter of irrigation was carried out. The patient tolerated the procedure well. Depend briefs were placed. The patient was awakened and transferred to the post-anesthetic care unit in satisfactory condition. LCS:tonia Job ID: [id number] Doc ID: [id number] Esdon Rojas M.D.
== END 2021-05-08 14:34 | disposition home or self-care (01) | DRG 872 ==
LOC: ED 17:36 → MEDSUR 20:51
PROVIDERS: ADMIT Internal Medicine; ATTEND Internal Medicine